=== PATIENT | female | born 1940 | race Caucasian/White ===

== ENCOUNTER → 2018-11-29 09:00 | Outpatient (CLI) | payer MEDICARE, SELFPAY ==
[2018-11-29 10:00] LABS: Bilirubin Urine UA NEGATIVE (NEGATIVE); Color Urine UA YELLOW; Glucose Urine UA NEGATIVE (Negative); Ketones Urine UA NEGATIVE (NEGATIVE); Leukocyte Esterase Urine UA 3+ (NEGATIVE); Nitrite Urine UA POSITIVE (Negative); Occult Blood Urine UA TRACE-INTACT (Negative); Protein Urine UA NEGATIVE (Negative); Urobilinogen Urine UA 0.2 E.U./dL (0.2)
[2018-11-29 10:05] LABS: Appearance Urine UA Cloudy
[2018-11-29 10:06] LABS: Add Manual Diff / Slide Review NO; Basophils Absolute Auto 100 /uL (0-100); Basophils Percent Auto 0.9 % (0-2); Eosinophils Absolute Auto 0 /uL (0-450); Eosinophils Percent Auto 0.5 % (2-4); Hematocrit 40.8 % (36-46); Hemoglobin 13.8 g/dL (12.0-16.0); Lymphocytes Absolute Auto 1300 /uL (1100-4500); Lymphocytes Percent Auto 15.5 % (25-40); Mean Corpuscular HGB Conc 33.8 % (30-36); Mean Corpuscular Hemoglobin 30.7 PG (26-34); Mean Corpuscular Volume 90.8 fL (80-100); Monocytes Absolute Auto 900 /uL (0-900); Monocytes Percent Auto 11.6 % (3-14); Neutrophils Absolute Auto 5800 /uL (1500-7000); Neutrophils Percent Auto 71.5 % (50-75); Platelet Count 421 X10^3/uL (150-400); Red Cell Distribution Width 13.3 % (11.6-14.8); White Blood Cell Count 8.1 X10^3/uL (4.5-11.0)
[2018-11-29 10:07] LABS: Bacteria Urine Many (>30); Culture Indicated Urine Specimen Cultured; RBC Urine 0-1/HPF (0-5/HPF); Squamous Epithelial Cell Urine 1-5 /HPF (0-5/HPF); WBC Urine 30-100/HPF (0-5/HPF)
[2018-11-29 10:44] LABS: Alanine Aminotransferase 29 IU/L (9-52); Albumin 4.1 g/dL (3.5-5.0); Albumin Globulin Ratio 1.5 (1.0-2.8); Alkaline Phosphatase 85 U/L (38-126); Aspartate Aminotransferase 22 IU/L (14-36); BUN Creatinine Ratio 17.1 (6-22); Bilirubin Total 0.7 mg/dL (0.2-1.3); Blood Urea Nitrogen 12 mg/dL (7-17); Calcium 9.2 mg/dL (8.4-10.2); Carbon Dioxide 28 mmol/L (22-32); Chloride 97 mmol/L (98-107); Cholesterol 129 mg/dL (140-199); Estimated Glomerular Filt Rate > 60.0 mL/min (>60); Globulin 2.8 g/dL (1.7-4.1); Glucose 97 mg/dL (80-110); HDL Cholesterol 57 mg/dL (40-60); HEMOLYSIS < 15 (0-50); LDL Cholesterol Calculated 61 mg/dL (<100); Potassium 4.9 mmol/L (3.4-5.1); Sodium 136 mmol/L (137-145); Total Protein 6.9 g/dL (6.3-8.2); Triglycerides 55 mg/dL (35-150)
[2018-11-29 11:13] LABS: Thyroid Stimulating Hormone 1.35 uIU/mL (0.47-4.68)
== END ==
PROVIDERS: Visit Provider Internal Medicine
DX: F32.9 Major depressive disorder, single episode, unspecified (principal); N39.0 Urinary tract infection, site not specified; Z00.00 Encounter for general adult medical examination without abnormal findings
CPT/HCPCS: 36415; 80053; 80061; 81001; 84443; 85025; 87077; 87086; 87186

== ENCOUNTER → 2020-02-26 13:10 | Outpatient (CLI) | payer MEDICARE, SELFPAY ==
--- NOTE | 2020-02-26 | DI.RAD.S_ITS ---
PROCEDURE: XR DEXA AXIAL SKELETON INDICATIONS: Other specified disorders of bone density and structure, mul COMPARISON: None. FINDINGS: This blank DEXA report has been sent in error by the PACS system. The correct and complete report will be forthcoming in 1-2 days. Thank you for your patience and understanding. Dictated by: Kody Jackson M.D. on 02/29/2020 at 8:11 Approved by: Kody Jackson M.D. on 02/29/2020 at 8:11
== END ==
PROVIDERS: PCP Internal Medicine; Referring Provider Physician Assistant; Visit Provider Physician Assistant
DX: M81.0 Age-related osteoporosis without current pathological fracture (principal); Z78.0 Asymptomatic menopausal state
CPT/HCPCS: 77080

== ENCOUNTER → 2020-03-19 08:43 | Outpatient (CLI) | payer MEDICARE, SELFPAY ==
--- NOTE | 2020-03-19 09:00 | DI.MG.S_ITS ---
Patient Name: JOESY RYDER date: 1940 Sex: F Attending Physician: Aguilar Indications: Date: 03/19/2020 08:50 At the request of: BIN FELICIANO Procedure: MM screening mammo BI BILATERAL DIGITAL SCREENING MAMMOGRAM 3D/2D WITH CAD: 03/19/2020 CLINICAL: Routine screening. Comparison is made to exams dated: 12/06/2017 mammogram, 09/10/2016 mammogram, and 12/09/2013 mammogram - [facility]. The tissue of both breasts is predominantly fatty. Current study was also evaluated with a Computer Aided Detection (CAD) system. There is a focal asymmetry in the left breast central to the nipple middle depth. No other significant masses, calcifications, or other findings are seen in either breast. IMPRESSION: INCOMPLETE: NEEDS ADDITIONAL IMAGING EVALUATION The focal asymmetry in the left breast is indeterminate. Additional views with possible ultrasound are recommended. This exam was interpreted at Station ID: [id number]. NOTE: For mammograms, a report in lay terms will be sent to the patient. Approximately 15% of breast malignancies will not be visualized mammographically. In the management of a palpable breast mass, a negative mammogram must not discourage biopsy of a clinically suspicious lesion. Electronically Signed By: Melina perales/tamera:03/22/2020 08:34:40 letter sent: Additional Imaging Needed ACR BI-RADS Category 0: Incomplete 3340F
== END ==
PROVIDERS: PCP Internal Medicine; Referring Provider Internal Medicine; Visit Provider Internal Medicine
DX: Z12.31 Encounter for screening mammogram for malignant neoplasm of breast (principal)
CPT/HCPCS: 77063; 77067

== ENCOUNTER → 2020-04-18 14:07 | Outpatient (CLI) | payer MEDICARE, SELFPAY ==
--- NOTE | 2020-04-18 | DI.MG.S_ITS ---
UNILATERAL LEFT DIGITAL DIAGNOSTIC MAMMOGRAM 3D/2D WITH ADDITIONAL VIEWS: 04/18/2020 CLINICAL: Additional evaluation requested from prior study. Comparison is made to exams dated: 03/19/2020 mammogram - [facility], 12/06/2017 mammogram, and 09/10/2016 mammogram - [facility]. The tissue of left breast is predominantly fatty. There is a round focal asymmetry in the left breast central to the nipple middle depth. This is seen in additional views. No other significant masses or calcifications are seen in the breast. IMPRESSION: INCOMPLETE: NEEDS ADDITIONAL IMAGING EVALUATION The focal asymmetry in the left breast is indeterminate. A targeted ultrasound of the left breast is recommended and will be performed immediately following this exam. This exam was interpreted at Station ID: [id number]. NOTE: For mammograms, a report in lay terms will be sent to the patient. Approximately 15% of breast malignancies will not be visualized mammographically. In the management of a palpable breast mass, a negative mammogram must not discourage biopsy of a clinically suspicious lesion. Electronically Signed By: Melina Mccracken M.D. lk/:04/18/2020 14:36:10 ACR BI-RADS Category 0: Incomplete 3340F
--- NOTE | 2020-04-18 | DI.US.S_ITS ---
ULTRASOUND OF LEFT BREAST: 04/18/2020 CLINICAL: Patient returns today to evaluate a focal asymmetry in the left breast. Comparison is made to exams dated: 04/18/2020 mammogram, 03/19/2020 mammogram - [facility], 12/06/2017 mammogram, and 09/10/2016 mammogram - [facility]. Color flow ultrasound of the left breast was performed on the areas of interest. Arizmendi scale images of the real-time examination were reviewed. There is a 0.7 cm x 0.3 cm x 0.7 cm oval cyst in the left breast at 12 o'clock middle depth. This oval cyst displays internal echoes and posterior acoustic enhancement. IMPRESSION: PROBABLY BENIGN The 0.7 cm x 0.3 cm x 0.7 cm oval cyst in the left breast is consistent with a complicated cyst and is probably benign. A follow-up ultrasound in 6 months is recommended to demonstrate stability. This exam was interpreted at Station ID: [id number]. Electronically Signed By: Melina perales/:04/18/2020 15:14:20 letter sent: Followup Recommended Ultrasound BI-RADS: 3 Probably benign
== END ==
PROVIDERS: PCP Internal Medicine; Referring Provider Internal Medicine; Visit Provider Internal Medicine
DX: R92.8 Other abnormal and inconclusive findings on diagnostic imaging of breast (principal); N60.02 Solitary cyst of left breast
CPT/HCPCS: 76642; 77065; G0279

== ENCOUNTER → 2020-04-29 14:59 | Outpatient (ROUT) | payer MEDICARE, SELFPAY ==
[2020-04-29 15:31] LABS: Add Manual Diff / Slide Review NO; Basophils Absolute Auto 100 /uL (0-100); Basophils Percent Auto 1.1 % (0-2); Eosinophils Absolute Auto 100 /uL (0-450); Eosinophils Percent Auto 1.6 % (2-4); Hematocrit 44.1 % (36-46); Hemoglobin 14.7 g/dL (12.0-16.0); Lymphocytes Absolute Auto 1900 /uL (1100-4500); Lymphocytes Percent Auto 27.7 % (25-40); Mean Corpuscular HGB Conc 33.4 % (30-36); Mean Corpuscular Hemoglobin 31.6 PG (26-34); Mean Corpuscular Volume 94.5 fL (80-100); Monocytes Absolute Auto 1000 /uL (0-900); Monocytes Percent Auto 14.4 % (3-14); Neutrophils Absolute Auto 3900 /uL (1500-7000); Neutrophils Percent Auto 55.2 % (50-75); Platelet Count 275 X10^3/uL (150-400); Red Blood Cell Count 4.67 X10^6/uL (4.0-5.2); Red Cell Distribution Width 13.5 % (11.6-14.8)
[2020-04-29 15:32] LABS: Alanine Aminotransferase 25 IU/L (<35); Albumin 4.4 g/dL (3.5-5.0); Albumin Globulin Ratio 1.6 (1.0-2.8); Alkaline Phosphatase 72 U/L (38-126); Aspartate Aminotransferase 28 IU/L (14-36); BUN Creatinine Ratio 15.3 (6-22); Bilirubin Total 0.6 mg/dL (0.2-1.3); Blood Urea Nitrogen 11 mg/dL (7-17); Calcium 9.6 mg/dL (8.4-10.2); Carbon Dioxide 34 mmol/L (22-32); Chloride 97 mmol/L (98-107); Estimated Glomerular Filt Rate > 60.0 mL/min (>60); Globulin 2.7 g/dL (1.7-4.1); Glucose 72 mg/dL (80-110); HEMOLYSIS < 15 (0-50); Potassium 4.4 mmol/L (3.4-5.1); Sodium 137 mmol/L (137-145); Total Protein 7.1 g/dL (6.3-8.2)
[2020-04-29 16:02] LABS: TSH w/ Reflex to FT4 2.04 uIU/mL (0.47-4.68)
[2020-04-29 16:29] LABS: Vitamin D 25 Hydroxy (D3) 70.2 ng/mL (30.0-100.0)
== END ==
PROVIDERS: PCP Internal Medicine; Visit Provider Internal Medicine
DX: M81.0 Age-related osteoporosis without current pathological fracture (principal); Z86.39 Personal history of other endocrine, nutritional and metabolic disease; K90.0 Celiac disease; R00.1 Bradycardia, unspecified
CPT/HCPCS: 80053; 82306; 84443; 85025

== ENCOUNTER → 2020-09-27 16:54 | Outpatient (CLI) | payer MEDICARE, SELFPAY ==
--- NOTE | 2020-09-27 16:57 | DI.RAD.S_ITS ---
PROCEDURE: XR SHOULDER RT MIN 2V INDICATIONS: pain TECHNIQUE: 3 views of the shoulder were acquired. COMPARISON: None. FINDINGS: Bones: No fracture. Moderate right shoulder joint degeneration with anatomic alignment. Scattered degenerative subchondral sclerosis and spurring. Soft tissues: No suspicious soft tissue calcifications. IMPRESSION: Moderate right shoulder joint degeneration. If the patient's pain or other symptoms persist, consider further evaluation with MRI Dictated by: Dylan Patiño M.D. on 09/28/2020 at 9:52 Approved by: Dylan Patiño M.D. on 09/28/2020 at 10:01
== END ==
PROVIDERS: PCP Family Medicine; Referring Provider Family Medicine; Visit Provider Family Medicine
DX: M25.511 Pain in right shoulder (principal); M19.011 Primary osteoarthritis, right shoulder
CPT/HCPCS: 73030

== ENCOUNTER → 2020-10-04 14:47 | Outpatient (CLI) | payer MEDICARE, SELFPAY ==
--- NOTE | 2020-10-04 14:48 | DI.US.S_ITS ---
LIMITED ULTRASOUND OF LEFT BREAST: 10/04/2020 CLINICAL: 6 month follow-up of cysts. Comparison is made to exams dated: 04/18/2020 ultrasound, 03/19/2020 mammogram, and 04/18/2020 mammogram - [facility]. Color flow and real-time ultrasound of the left breast were performed. Arizmendi scale images of the real-time examination were reviewed. There is a 0.9 cm x 0.9 cm x 0.5 cm oval cyst in the left breast at 12 o'clock middle depth 1 cm from the nipple. This oval cyst displays internal echoes. This abnormality is increased in size. Color flow imaging demonstrates that there is no vascularity present. IMPRESSION: PROBABLY BENIGN The 0.9 cm oval cyst in the left breast is consistent with a complicated cyst and is probably benign. A follow-up ultrasound in 6 months is recommended to demonstrate stability. Patient will also be due for bilateral mammogram at that time. Exam findings were conveyed to the patient. This exam was interpreted at Station ID: [id number]. Electronically Signed By: Dada Cruz M.D. [facility] [place]/:10/04/2020 16:57:10 letter sent: Followup Recommended Ultrasound BI-RADS: 3 Probably benign
== END ==
PROVIDERS: PCP Family Medicine; Referring Provider Family Medicine; Visit Provider Family Medicine
DX: R92.8 Other abnormal and inconclusive findings on diagnostic imaging of breast (principal); N60.02 Solitary cyst of left breast; M25.511 Pain in right shoulder
CPT/HCPCS: 76642

== ENCOUNTER → 2020-11-10 07:41 | Outpatient (CLI) | payer MEDICARE, SELFPAY ==
[2020-11-10 08:53] LABS: Add Manual Diff / Slide Review NO; Basophils Absolute Auto 100 /uL (0-100); Basophils Percent Auto 1.3 % (0-2); Eosinophils Absolute Auto 100 /uL (0-450); Eosinophils Percent Auto 1.8 % (2-4); Hematocrit 43.4 % (36-46); Hemoglobin 14.6 g/dL (12.0-16.0); Lymphocytes Absolute Auto 1600 /uL (1100-4500); Lymphocytes Percent Auto 28.3 % (25-40); Mean Corpuscular HGB Conc 33.7 % (30-36); Mean Corpuscular Hemoglobin 31.4 PG (26-34); Mean Corpuscular Volume 93.1 fL (80-100); Monocytes Absolute Auto 700 /uL (0-900); Monocytes Percent Auto 12.1 % (3-14); Neutrophils Absolute Auto 3100 /uL (1500-7000); Neutrophils Percent Auto 56.5 % (50-75); Platelet Count 261 X10^3/uL (150-400); Red Blood Cell Count 4.66 X10^6/uL (4.0-5.2); Red Cell Distribution Width 13.6 % (11.6-14.8); White Blood Cell Count 5.6 X10^3/uL (4.5-11.0)
[2020-11-10 09:08] LABS: BUN Creatinine Ratio 19.2 (6-22); Blood Urea Nitrogen 15 mg/dL (7-17); Calcium 9.5 mg/dL (8.4-10.2); Carbon Dioxide 29 mmol/L (22-32); Chloride 99 mmol/L (98-107); Cholesterol 163 mg/dL (140-199); Estimated Glomerular Filt Rate > 60.0 mL/min (>60); Glucose 80 mg/dL (80-110); HDL Cholesterol 68 mg/dL (40-60); HEMOLYSIS < 15 (0-50); LDL Cholesterol Calculated 83 mg/dL (<100); Potassium 5.1 mmol/L (3.4-5.1); Sodium 135 mmol/L (137-145); Triglycerides 58 mg/dL (35-150)
== END ==
PROVIDERS: PCP Family Medicine; Referring Provider Internal Medicine Cardiovascular Disease; Visit Provider Internal Medicine Cardiovascular Disease
DX: Z00.00 Encounter for general adult medical examination without abnormal findings (principal)
CPT/HCPCS: 36415; 80048; 80061; 85025

== ENCOUNTER → 2020-11-25 12:48 | Outpatient (CLI) | payer MEDICARE, SELFPAY ==
--- NOTE | 2020-11-25 12:52 | DI.RAD.S_ITS ---
PROCEDURE: XR KNEE RT 3V INDICATIONS: instability TECHNIQUE: 3 views of the knee were acquired. COMPARISON: None. FINDINGS: Bones: No fractures or dislocations. No suspicious bony lesions. There is [id number] medial compartment joint space narrowing on the frontal projection and only mild narrowing at the lateral compartment. Soft tissues: No joint effusion. No suspicious soft tissue calcifications. 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 Dictated by: Kody Jackson M.D. on 11/25/2020 at 15:40 Approved by: Kody Jackson M.D. on 11/25/2020 at 15:40
== END ==
PROVIDERS: PCP Family Medicine; Referring Provider Family Medicine; Visit Provider Family Medicine
DX: M23.51 Chronic instability of knee, right knee (principal)
CPT/HCPCS: 73562

== ENCOUNTER → 2020-12-07 08:22 | Outpatient (CLI) | payer MEDICARE, SELFPAY ==
[2020-12-07 11:40] LABS: COVID19 -Nasal RAPID Negative (Negative)
== END ==
PROVIDERS: PCP Family Medicine; Visit Provider Physician Assistant
DX: Z01.812 Encounter for preprocedural laboratory examination (principal); Z20.822 Contact with and (suspected) exposure to COVID-19
CPT/HCPCS: 87635; C9803

== ENCOUNTER → 2020-12-09 13:35 | Outpatient (CLI) | payer MEDICARE, SELFPAY ==
--- NOTE | 2020-12-09 | DI.ECHO.S_ITS ---
[facility]---------+ [facility] +---------+ : : [address] : [address] : : : : [id number] : : : : Phone: [phone]+ Echocardiogram Report + + :Name: JOSEY RYDER Study Date: 12/09/2020 Height: 64 in : :[facility] ReadingLocation: Weight: 135 lb : : Gender: Female BSA: 1.7 m2 : :: 1940 Age: 80 yrs BP: 178/77 mmHg: :Reason For Study: Bradycardia : :Ordering Physician: Viktor : :Cesar Hurt Performed By: Dennis Clifton : :Referring: VIKTOR HURT : + + Interpretation Summary 1) Normal left ventricular thickness, size, wall motion, and systolic function (EF 60-65%). 2) Normal right ventricular size and function. 3) No significant valvular abnormalities. 4) No prior Echo available for comparison. Procedure: A two-dimensional transthoracic echocardiogram with color flow and Doppler was performed. The study quality was technically adequate. There is no prior echocardiogram noted for this patient. The patient was in sinus bradycardia with heart rates between 43-52 bpm during the exam. Left Ventricle: The left ventricle is normal in size and wall thickness. Left ventricular systolic function is normal. The ejection fraction is estimated to be 60-65%. There are no focal wall motion abnormalities. Diastolic function could not be accurately assessed due to unobtainable data. Right Ventricle: The right ventricle is normal in size and function. Atria: The left atrium is moderately dilated. Right atrial size is normal. There is no Doppler evidence for an interatrial shunt. Mitral Valve: There is mild mitral annular calcification. There is trace mitral regurgitation. Aortic Valve: The aortic valve is normal in structure and function. There is no aortic valve stenosis. No aortic regurgitation is present. Tricuspid Valve: The tricuspid valve is normal in structure and function. No tricuspid regurgitation. Pulmonary artery pressures cannot be estimated because of the lack of a measurable TR jet velocity but the IVC suggests a CVP of around 3 mmHg. Pulmonic Valve: The pulmonic valve is not well visualized. There is no pulmonic valvular regurgitation. Great Vessels: The aortic root is normal size. The dimensions of the ascending aorta are normal. The IVC is of normal diameter and collapses greater than 50% with a sniff. This suggests a low right atrial pressure of 3 mm Hg. Pericardium/ Pleura There is no pericardial effusion. There is no pleural effusion. MMode/2D Measurements & Calculations LVIDd: 4.3 cm LVOT diam: 1.9 cm LVIDs: 2.8 cm Ao root diam: 2.6 cm FS: 33.5 % asc Aorta Diam: 3.0 cm IVSd: 0.79 cm LVPWd: 0.79 cm LV garza. diameter/BSA (cm/m^2): 2.6 LV sys. diameter/BSA (cm/m^2): 1.7 LA A2 area: 19.4 cm2 RA long axis: 4.9 cm LA A4 area: 19.7 cm2 RA area: 12.4 cm2 LA length (vol): 5.0 cm RA vol: 26.7 ml LA vol: 65.0 ml RA : 16.2 ml/m2 LA vol index: 39.2 ml/m2 IVC diam: 2.0 cm TAPSE: 2.6 cm Doppler Measurements & Calculations Ao V2 max: 127.2 cm/sec LVOT Max Abel: 142.4 cm/sec Ao V2 mean: 85.8 cm/sec LV V1 max P.1 mmHg Ao max P.5 mmHg LV V1 VTI: 32.5 cm Ao mean P.3 mmHg EUSEBIO(I,D): 3.0 cm2 Ao V2 VTI: 31.6 cm EUSEBIO(V,D): 3.3 cm2 sev ratio: 1.0 EUSEBIO indexed to BSA (cm^2/m^2): 1.8 MV E max abel: 81.4 cm/sec PA pr(Accel): 57.2 mmHg MV A max abel: 76.9 cm/sec MV E/A: 1.1 Med Peak E' Abel: 5.5 cm/sec E/E' med: 14.7 Lat Peak E' Abel: 8.4 cm/sec E/E' lat: 9.7 E/e' average: 12.2 MV dec time: 0.21 sec SV(LVOT): 95.1 ml Reading Physician:05:06 PM
--- NOTE | 2020-12-09 15:51 | PM.TREADMILL ---
Cardiac Stress Test Report Referral & Results Date Patient Seen: 12/09/20 Time Patient Seen: 15:51 Requesting provider: Ayaka Hurt Indication: bradycardia Rest ECG: Sinus bradycardia Procedure Note: Standard Missael protocol, 7:03, 7.2 METS Excellent exercise capacity, ANDREW -51% Normal hemodynamic response to exercise No chest pain or anginal symptoms No significant ST changes at peak exercise No evidence of chronotropic incompetence Impression: Normal exercise stress test Please note: Actual ECG tracings can be found in the PACS system.
--- NOTE | 2020-12-10 00:10 | DI.NM.S_ITS ---
DATE OF SERVICE: 12/09/2020 PROCEDURE: Exercise stress test. INDICATION: Sinus bradycardia. CARDIAC STRESS: Under the supervision of an attending staff, the patient underwent exercise stress test, as per standard protocol. She walked on Missael protocol for 7 minutes 03 seconds, achieved a maximum heart rate of 118, which was 85 percent of target heart rate. Baseline heart rate was 52 with sinus bradycardia. Baseline blood pressure 150/70 mmHg. Peak blood pressure 162/88 mmHg. The patient achieved 10.1 METs of workload and functional aerobic impairment -51 percent. Baseline rhythm was sinus with sinus bradycardia with repolarization changes. During stress, there were some nonspecific ST changes, as well as some PVCs, PACs and occasional ventricular couplets without any obvious atrial fibrillation or ventricular tachycardia. No chest pain or anginal symptoms. The patient felt fatigue. CONCLUSION: Exercise stress test is negative for obvious inducible ischemic changes. Preserved chronotropic response. Normal hemodynamic response. No anginal symptoms. During stress, patient has some PVCs (premature ventricular contractions) and PACs (premature atrial contractions) with occasional ventricular couplets without any obvious atrial fibrillation or ventricular tachycardia. Onelia Stratton - SHAY/dung/lc doc#: [id number]/job#: [id number] dd: 12/09/2020 17:34:00 dt: 12/09/2020 19:29:00 DICTATING /COPIES TO: Danika Velasquez MD COPIES MNE: JABARI;
== END ==
PROVIDERS: PCP Family Medicine; Referring Provider Internal Medicine Cardiovascular Disease; Visit Provider Internal Medicine Cardiovascular Disease
DX: R00.1 Bradycardia, unspecified (principal)
CPT/HCPCS: 93017; 93306

== ENCOUNTER 2021-01-28 16:37 | Emergency (ER) | payer MEDICARE, SELFPAY ==
[2021-01-28 16:43] VITALS: BP 186/69; PULSE 63; RESP 18; TEMP 36.4; O2SAT 97; BMI 23.1
--- NOTE | 2021-01-28 17:32 | ED.GENADULT ---
HPI - General Adult General Chief complaint: Extremity Injury, Upper Stated complaint: LT HAND GASH, USING CLIPPERS Time Seen by Provider: 01/28/21 17:20 Source: patient Mode of arrival: Ambulatory Limitations: no limitations History of Present Illness HPI narrative: Patient is here for evaluation of a cut to her left hand. It did occur earlier today when she was using clippers to cut some bushes. She is up-to-date on her tetanus. She did not wash it out prior to arrival. She did cover the bandage for Related Data Home Medications Medication Instructions Recorded Confirmed No Known Home Medications 10/04/20 01/19/21 Allergies Allergy/AdvReac Type Severity Reaction Status Date / Time gluten Allergy Unknown Verified 01/19/21 15:59 Review of Systems Musculoskeletal Comments: Discomfort over the cut of her left hand Integumentary/Breasts Comments: To left hand Neurologic Comments: No neurologic changes Hematologic/Lymphatic On Anticoagulants: No Patient History Medical History Abnormality of breast on screening mammography Anemia (~1966) Cataracts, bilateral Celiac disease (~2008) Cervical somatic dysfunction Chicken pox Chronic instability of right knee Chronic pain in right shoulder Cranial somatic dysfunction Foot fracture, right (~1994) Frequent UTI (~2012) Gluten enteropathy Hearing loss History of recurrent ear infection Insomnia Measles Mumps Osteoarthritis (~2020) Osteopenia Ruptured tympanic membrane Skin cancer (~2016) Stress incontinence Upper extremity somatic dysfunction Wears glasses Surgical History (Updated 09/26/20 @ 21:25 by Caterina Farmer) Anesthesia History of bladder suspension procedure (~2007) History of hip replacement (~2010) History of hip replacement (~2012) History of left knee replacement (~2014) Prolapsed uterus (~2008) Family History (Updated 09/26/20 @ 21:28 by Caterina Farmer) Father Cancer Mother History of emphysema COPD (chronic obstructive pulmonary disease) Brother History of knee surgery Melanoma Neuropathy of foot Grandmother History of heart disease Social History Smoking Status: Never smoker Smoking Status: Never smoker alcohol intake frequency: 0-2 drinks per day Substance Use Type: does not use Exam Initial Vital Signs Initial Vital Signs: Vital Signs Temperature 97.5 F L 01/28/21 16:43 Pulse Rate 63 01/28/21 16:43 Respiratory Rate 18 01/28/21 16:43 Blood Pressure 186/69 H 01/28/21 16:43 Pulse Oximetry 97 01/28/21 16:43 Const General: cooperative and healthy appearing NICOLLEFL Head: normal to inspection and normocephalic Cardio Pulses: radial pulses present on the left Skin Other: 1 cm laceration to left hand Neuro General: patient alert, patient awake, patient oriented x3 and moves all extremities Sensory Exam: no sensory deficits noted Extrem Other: Left wrist is unremarkable Psych Appearance: grossly normal and well kempt Procedures Laceration Repair Laceration 1: Site: hand Side (If applicable): left Size (cm): 1 Description: linear Depth: simple, single layer Local Anesthetic: lidocaine 1% and with bicarb Amount of anesthesia used (mL): 5 Pre-repair: wound explored Skin layer closed with: nylon Size (cm): 5-0 Number of sutures: 3 Technique: simple, interrupted Course Orders Ordered: Discontinued Medications Bacitracin (Bacitracin Oint 0.9 Gm Pckt) 1 applic TOP NOW ONE Stop: 01/28/21 18:24 Last Admin: 01/28/21 18:28 Dose: 1 applic Documented by: CTRYOUNG Lidocaine/Sodium Bicarbonate (Lido 1%/Sod Bicarb 8.4% (10ml) 10 Ml Syringe) 10 ml INJ NOW ONE Stop: 01/28/21 17:32 Last Admin: 01/28/21 17:39 Dose: 10 ml Documented by: CTRYOUNG Vital Signs Vital signs: Vital Signs - 8 hr 01/28/21 16:43 01/28/21 18:33 Temperature 97.5 F L Pulse Rate 63 42 L Respiratory Rate 18 18 Blood Pressure 186/69 H 174/74 H Pulse Oximetry 97 97 Medical Decision Making [facility] Narrative Medical decision making narrative: Wound was irrigated. She is up-to-date on tetanus. It was closed as described above. She was given return precautions and follow-up instructions. She expressed understanding and agreement. Discharge Plan Departure Patient Disposition: Home Clinical Impression: Laceration Instructions: DI for Laceration Repair -- Simple Activity Restrictions/Additional Instructions: The stitches do need to be removed in 7-10 days. Until then you can keep it covered with a bandage in use topical antibiotic ointment. You can wash her hands like normal use soap and water like normal. Return to the emergency department for any new or worsening symptoms Prescriptions: No Action No Known Home Medications RF: 0 Referrals: Mauro Sandoval DO [Primary Care Provider] -
[2021-01-28] MEDS: LIDO 1%/SOD BICARB 8.4% (10ML) 10 ML SYRINGE INJ (17:39)
[2021-01-28] MEDS: BACITRACIN OINT 0.9 GM PCKT 1 APPLIC TOP (18:28)
[2021-01-28 18:33] VITALS: BP 174/74; PULSE 42; RESP 18; O2SAT 97
== END 2021-01-28 18:34 | disposition home or self-care (01) ==
PROVIDERS: Emergency Provider Emergency Medicine; PCP Family Medicine
DX: S61.412A Laceration without foreign body of left hand, initial encounter (principal); W27.2XXA Contact with scissors, initial encounter
CPT/HCPCS: 12001; 99283

== ENCOUNTER → 2021-05-01 09:03 | Outpatient (CLI) | payer MEDICARE, SELFPAY ==
--- NOTE | 2021-05-01 | DI.MG.S_ITS ---
BILATERAL DIGITAL DIAGNOSTIC MAMMOGRAM 3D/2D SHORT-TERM FOLLOW-UP: 05/01/2021 CLINICAL: Short term follow up of the left breast, due for bilateral imaging. Comparison is made to exams dated: 04/18/2020 mammogram, 03/19/2020 mammogram - [facility], 12/06/2017 mammogram - [facility], 10/04/2020 ultrasound - [facility], and 09/10/2016 mammogram - [facility]. The tissue of both breasts is predominantly fatty. There is a focal asymmetry in the left breast at 12 o'clock middle depth. This is less prominent. No other significant masses, calcifications, or other findings are seen in either breast. IMPRESSION: INCOMPLETE: NEEDS ADDITIONAL IMAGING EVALUATION The focal asymmetry in the left breast remains indeterminate. A targeted ultrasound is recommended and will immediately follow. This exam was interpreted at Station ID: [id number]. NOTE: For mammograms, a report in lay terms will be sent to the patient. Approximately 15% of breast malignancies will not be visualized mammographically. In the management of a palpable breast mass, a negative mammogram must not discourage biopsy of a clinically suspicious lesion. Electronically Signed By: Dada Cruz M.D. slc/:05/01/2021 09:42:09 ACR BI-RADS Category 0: Incomplete 3340F
--- NOTE | 2021-05-01 09:04 | DI.US.S_ITS ---
LIMITED ULTRASOUND OF LEFT BREAST: 05/01/2021 CLINICAL: Patient returns today to evaluate a focal asymmetry in the left breast. Comparison is made to exams dated: 05/01/2021 mammogram, 10/04/2020 ultrasound, 04/18/2020 ultrasound, 04/18/2020 mammogram, 03/19/2020 mammogram - [facility], and 12/06/2017 mammogram - [facility]. Color flow and real-time ultrasound of the left breast 12 o'clock region were performed. Arizmendi scale images of the real-time examination were reviewed. There is a 0.2 cm x 0.2 cm x 0.1 cm oval cyst in the left breast at 12 o'clock middle depth 1 cm from the nipple. This oval cyst displays internal echoes. This abnormality is decreased in size. Color flow imaging demonstrates that there is no vascularity present. IMPRESSION: PROBABLY BENIGN The 0.2 cm oval cyst in the left breast is consistent with a complicated cyst and is probably benign. This is favored to represent a significant decrease in size in the previously seen complicated cyst. The mammographic finding is less prominent. A follow-up mammogram and a possible ultrasound in 12 months is recommended. Patient will be due for right breast mammogram at that time. Exam findings were conveyed to the patient. This exam was interpreted at Station ID: [id number]. Electronically Signed By: Dada Cruz M.D. slc/:05/01/2021 10:42:33 letter sent: Followup Recommended Ultrasound BI-RADS: 3 Probably benign
== END ==
PROVIDERS: PCP Family Medicine; Referring Provider Family Medicine; Visit Provider Family Medicine
DX: R92.8 Other abnormal and inconclusive findings on diagnostic imaging of breast (principal); N60.02 Solitary cyst of left breast
CPT/HCPCS: 76642; 77066; G0279

== ENCOUNTER → 2022-04-03 14:19 | Outpatient (CLI) | payer MEDICARE, SELFPAY | PROVIDERS: PCP Family Medicine; Referring Provider Family Medicine; Visit Provider Family Medicine | DX: Z13.820 Encounter for screening for osteoporosis; Z78.0 Asymptomatic menopausal state; Z79.890 Hormone replacement therapy | CPT/HCPCS: 77080; 77081 ==

== ENCOUNTER → 2022-04-12 13:53 | Outpatient (CLI) | payer MEDICARE, SELFPAY ==
--- NOTE | 2022-04-12 | DI.ECHO.S_ITS ---
[facility] +---------+ Hospital +---------+ : : [address] : [address] : : : : [id number] : : : : Phone: [phone]+ Echocardiogram Report + + :Name: JOSEY RYDER Study Date: 04/12/2022 Height: 64 in : :[facility] ReadingLocation: Weight: 135 lb : : Gender: Female BSA: 1.7 m2 : :: 1940 Age: 81 yrs BP: 159/84 mmHg: :Reason For Study: Atrial fibrillation : :Ordering Physician: ROSE, : :VIKTOR Performed By: Dennis Clifton : :Referring: VIKTOR HURT : + + Interpretation Summary 1) Normal left ventricular thickness, size, wall motion, and systolic function (EF 60-65%). 2) Normal right ventricular size and function. 3) No significant valvular abnormalities. 4) Compared to the Echo done 12/09/2020, no significant change. Procedure: A two-dimensional transthoracic echocardiogram with color flow and Doppler was performed. The study quality was technically adequate. Comparison is made with the echocardiogram of 12/09/2020. Left Ventricle: The left ventricle is normal in size and wall thickness. Left ventricular systolic function is normal. The ejection fraction is estimated to be 60-65%. There are no focal wall motion abnormalities. Diastolic parameters suggest a pseudonormalization pattern, consistent with probable elevated filling pressures. Right Ventricle: The right ventricle is normal in size and function. Atria: The left atrium is moderately dilated. Right atrial size is normal. The interatrial septum grossly appears intact with no obvious evidence for an atrial septal defect. Mitral Valve: There is mild mitral annular calcification. There is mild mitral regurgitation. Aortic Valve: The aortic valve is normal in structure and function. There is trace aortic regurgitation. Tricuspid Valve: The tricuspid valve is normal in structure and function. There is a trace or physiologic amount of tricuspid regurgitation. Pulmonary artery pressures cannot be estimated because of the lack of a measurable TR jet velocity. Pulmonic Valve: The pulmonic valve is normal in structure and function. There is no pulmonic valvular regurgitation. Great Vessels: The aortic root is normal size. The dimensions of the ascending aorta are normal. The IVC is of normal diameter and collapses greater than 50% with a sniff. This suggests a low right atrial pressure of 3 mm Hg. Pericardium/ Pleura There is no pericardial effusion. There is no pleural effusion. MMode/2D Measurements & Calculations LVIDd: 4.3 cm LVOT diam: 2.0 cm LVIDs: 2.8 cm Ao root diam: 2.6 cm FS: 34.9 % IVSd: 0.90 cm LVPWd: 0.80 cm LV garza. diameter/BSA (cm/m^2): 2.6 LV sys. diameter/BSA (cm/m^2): 1.7 LA dimension: 3.5 cm RA long axis: 5.6 cm LA A2 area: 22.4 cm2 LA A4 area: 20.7 cm2 LA length (vol): 5.6 cm LA vol: 70.2 ml LA vol index: 42.4 ml/m2 TAPSE_phl: 2.9 cm Doppler Measurements & Calculations Ao V2 max: 123.0 cm/sec LVOT Max Abel: 132.0 cm/sec Ao V2 mean: 90.0 cm/sec LV V1 max P.0 mmHg Ao max P.0 mmHg LV V1 VTI: 33.9 cm Ao mean P.0 mmHg EUSEBIO(I,D): 3.6 cm2 Ao V2 VTI: 29.5 cm EUSEBIO(V,D): 3.4 cm2 sev ratio: 1.1 EUSEBIO indexed to BSA (cm^2/m^2): 2.2 MV E max abel: 104.0 cm/sec SV(LVOT): 106.5 ml MV A max abel: 94.1 cm/sec MV E/A: 1.1 Med Peak E' Abel: 5.6 cm/sec E/E' med: 18.5 Lat Peak E' Abel: 8.3 cm/sec E/E' lat: 12.5 E/e' average: 15.5 MV dec time: 0.18 sec AV VR_phl: 1.1 MV P1/2t-pr_phl: 53.0 msec EUSEBIO(VTI)/BSA_phl: 2.2 Reading Physician:08:11 PM
== END ==
PROVIDERS: PCP Family Medicine; Referring Provider Internal Medicine Cardiovascular Disease; Visit Provider Internal Medicine Cardiovascular Disease
DX: I45.5 Other specified heart block (principal); I48.0 Paroxysmal atrial fibrillation; I34.0 Nonrheumatic mitral (valve) insufficiency
CPT/HCPCS: 93306

== ENCOUNTER → 2022-05-16 13:51 | Outpatient (CLI) | payer MEDICARE, SELFPAY ==
[2022-05-16 14:32] LABS: Appearance Urine UA SL CLOUDY; Bilirubin Urine UA NEGATIVE (NEGATIVE); Color Urine UA YELLOW; Glucose Urine UA NEGATIVE (Negative); Ketones Urine UA NEGATIVE (NEGATIVE); Leukocyte Esterase Urine UA 3+ (NEGATIVE); Nitrite Urine UA NEGATIVE (Negative); Occult Blood Urine UA TRACE-INTACT (Negative); Protein Urine UA NEGATIVE (Negative); Specific Gravity Urine UA <=1.005 (1.000-1.035); Urobilinogen Urine UA 0.2 E.U./dL (0.2)
[2022-05-16 14:45] LABS: Bacteria Urine Many (>30); Culture Indicated Urine Specimen Cultured; RBC Urine 1-5/HPF (0-5/HPF); WBC Urine >100/HPF (0-5/HPF)
== END ==
PROVIDERS: PCP Family Medicine; Referring Provider Family Medicine; Visit Provider Family Medicine
DX: R39.9 Unspecified symptoms and signs involving the genitourinary system (principal)
CPT/HCPCS: 81001; 87077; 87086; 87186

== ENCOUNTER → 2022-06-05 10:15 | Outpatient (CLI) | payer MEDICARE, SELFPAY ==
--- NOTE | 2022-06-05 | DI.MG.S_ITS ---
BILATERAL DIGITAL DIAGNOSTIC MAMMOGRAM 3D/2D SHORT-TERM FOLLOW-UP: 06/05/2022 CLINICAL: One year follow of the left breast. Comparison is made to exams dated: 05/01/2021 mammogram, 04/18/2020 mammogram, and 03/19/2020 mammogram - [facility]. Both breasts are almost entirely fatty (category a/<25% glandular tissue). The focal asymmetry in the left breast at 12 o'clock middle depth has become less prominent, not seen on supplementary views. No other significant masses, calcifications, or other findings are seen in either breast. IMPRESSION: INCOMPLETE: NEEDS ADDITIONAL IMAGING EVALUATION The focal asymmetry in the left breast is less prominent. An ultrasound is recommended to document continued stability and for characterization This was performed immediately following this exam. Mammograms are otherwise stable. Based on the Tyrer Cuzick model (a risk assessment model) the patient's lifetime risk is 0.6% and her 10 year risk is 0.0%. According to the ACR, ACS, and NCCN guidelines, an annual breast MRI exam along with mammogram is recommended if the patient's lifetime risk is 20% or greater. This exam was interpreted at Station ID: [id number]. NOTE: For mammograms, a report in lay terms will be sent to the patient. Approximately 15% of breast malignancies will not be visualized mammographically. In the management of a palpable breast mass, a negative mammogram must not discourage biopsy of a clinically suspicious lesion. Electronically Signed By: Diane bland/:06/05/2022 11:13:10 ACR BI-RADS Category 0: Incomplete 3340F
--- NOTE | 2022-06-05 10:17 | DI.US.S_ITS ---
LIMITED ULTRASOUND OF LEFT BREAST: 06/05/2022 CLINICAL: 6 month follow-up of cysts. Comparison is made to exams dated: 06/05/2022 mammogram, 05/01/2021 ultrasound, 05/01/2021 mammogram, 10/04/2020 ultrasound, 04/18/2020 ultrasound, and 04/18/2020 mammogram - [facility]. Color flow ultrasound of the left breast 12 o'clock region was performed. Arizmendi scale images of the real-time examination were reviewed. There is a 0.2 cm x 0.2 cm x 0.3 cm oval cyst in the left breast at 12 o'clock anterior depth 1 cm from the nipple. This oval cyst is anechoic. This abnormality is less prominent. No vascularity. IMPRESSION: BENIGN There is no sonographic evidence of malignancy. The 0.2 cm x 0.2 cm x 0.3 cm oval cyst in the left breast is consistent with a simple cyst and is benign. Return to annual mammogram screening schedule is recommended. Findings and recommendations were conveyed to the patient at time of exam. This exam was interpreted at Station ID: [id number]. Electronically Signed By: Diane bland/:06/05/2022 11:14:48 letter sent: Normal Exam Ultrasound BI-RADS: 2 Benign
== END ==
PROVIDERS: PCP Family Medicine; Referring Provider Family Medicine; Visit Provider Family Medicine
DX: R92.8 Other abnormal and inconclusive findings on diagnostic imaging of breast (principal); N60.02 Solitary cyst of left breast
CPT/HCPCS: 76642; 77066; G0279

== ENCOUNTER → 2022-06-08 13:12 | Outpatient (CLI) | payer MEDICARE, SELFPAY ==
--- NOTE | 2022-06-08 13:15 | DI.RAD.S_ITS ---
PROCEDURE: XR WRIST LT MIN 3V INDICATIONS: Left hand pain and swelling status post fall TECHNIQUE: 3 views of the wrist were acquired. COMPARISON: None. FINDINGS: Bones: There is generalized osteopenia. Mild deformity of the distal radius is most likely secondary to a remote prior injury. There is resulting positive ulnar variance and mild radial tilting. Mild irregularity of the ulnar styloid tip is also most likely chronic. No acute fracture identified. Degenerative changes are seen at the 1st carpometacarpal joint and triscaphe joint. Scaphoid view: Intact scaphoid. Soft tissues: No suspicious soft tissue calcifications. IMPRESSION: 1. No acute osseous abnormality. If clinical suspicion and/or symptoms persist, additional imaging with repeat plain films, or advanced imaging (e.g. CT, MRI) may be helpful for further assessment. 2. Mild chronic fracture deformity at the distal radius and possibly the ulnar styloid. 3. Degenerative changes at the 1st carpometacarpal and triscaphe joint. Approved by: Shai Zafar M.D. on 06/08/2022 at 14:19
--- NOTE | 2022-06-08 13:15 | DI.RAD.S_ITS ---
PROCEDURE: XR HAND LT MIN 3V INDICATIONS: Left hand pain and swelling status post fall TECHNIQUE: 3 views of the hand acquired. COMPARISON: None. FINDINGS: Bones: Generalized osteopenia. Mild chronic fracture deformity of the distal radius and likely the ulnar styloid. Degenerative changes are seen at the 1st carpometacarpal joint and triscaphe joint as well as throughout the interphalangeal joints of the fingers. Soft tissues: No suspicious soft tissue calcifications. IMPRESSION: 1. No acute osseous abnormality. If clinical suspicion and/or symptoms persist, additional imaging with repeat plain films, or advanced imaging (e.g. CT, MRI) may be helpful for further assessment. 2. Background degenerative changes. Approved by: Shai Zafar M.D. on 06/08/2022 at 14:20
== END ==
PROVIDERS: PCP Family Medicine; Referring Provider Family Medicine; Visit Provider Family Medicine
DX: M85.842 Other specified disorders of bone density and structure, left hand (principal); M21.832 Other specified acquired deformities of left forearm; M25.532 Pain in left wrist; M79.642 Pain in left hand
CPT/HCPCS: 73110; 73130

== ENCOUNTER → 2022-07-10 11:17 | Outpatient (CLI) | payer MEDICARE, SELFPAY ==
[2022-07-10 12:09] LABS: Appearance Urine UA SL CLOUDY; Bilirubin Urine UA NEGATIVE (NEGATIVE); Color Urine UA YELLOW; Glucose Urine UA NEGATIVE (Negative); Ketones Urine UA NEGATIVE (NEGATIVE); Leukocyte Esterase Urine UA 3+ (NEGATIVE); Nitrite Urine UA POSITIVE (Negative); Occult Blood Urine UA TRACE-LYSED (Negative); Protein Urine UA NEGATIVE (Negative); Specific Gravity Urine UA <=1.005 (1.000-1.035); Urobilinogen Urine UA 0.2 E.U./dL (0.2)
[2022-07-10 12:12] LABS: pH Urine UA 6.5 (4.5-8.0)
[2022-07-10 12:19] LABS: Bacteria Urine Many (>30); Culture Indicated Urine Specimen Cultured; RBC Urine None Seen (0-5/HPF); Squamous Epithelial Cell Urine 1-5 /HPF (0-5/HPF); WBC Urine 10-30/HPF (0-5/HPF)
== END ==
PROVIDERS: PCP Family Medicine; Referring Provider Family Medicine; Visit Provider Family Medicine
DX: R39.9 Unspecified symptoms and signs involving the genitourinary system (principal)
CPT/HCPCS: 81001; 87077; 87086; 87186

== ENCOUNTER → 2022-08-02 13:07 | Outpatient (CLI) | payer MEDICARE, SELFPAY ==
[2022-08-02 14:00] LABS: Appearance Urine UA SL CLOUDY; Bilirubin Urine UA NEGATIVE (NEGATIVE); Color Urine UA YELLOW; Glucose Urine UA NEGATIVE (Negative); Ketones Urine UA NEGATIVE (NEGATIVE); Leukocyte Esterase Urine UA 3+ (NEGATIVE); Nitrite Urine UA NEGATIVE (Negative); Occult Blood Urine UA TRACE-INTACT (Negative); Protein Urine UA NEGATIVE (Negative); Specific Gravity Urine UA <=1.005 (1.000-1.035); Urobilinogen Urine UA 0.2 E.U./dL (0.2)
[2022-08-02 14:10] LABS: Amorphous Sediment Urine 1+; Bacteria Urine None Seen; Culture Indicated Urine Specimen Cultured; RBC Urine None Seen (0-5/HPF); Squamous Epithelial Cell Urine None Seen (0-5/HPF); WBC Urine 30-100/HPF (0-5/HPF)
== END ==
PROVIDERS: PCP Family Medicine; Referring Provider Family Medicine; Visit Provider Family Medicine
DX: R39.9 Unspecified symptoms and signs involving the genitourinary system (principal)
CPT/HCPCS: 81001; 87086

== ENCOUNTER → 2022-11-20 07:39 | Outpatient (CLI) | payer MEDICARE, SELFPAY ==
[2022-11-20 08:53] LABS: Add Manual Diff / Slide Review NO; Basophils Absolute Auto 100 /uL (0-100); Basophils Percent Auto 1.2 % (0-2); Eosinophils Absolute Auto 200 /uL (0-450); Eosinophils Percent Auto 3.2 % (2-4); Hematocrit 41.2 % (36-46); Hemoglobin 13.9 g/dL (12.0-16.0); Lymphocytes Absolute Auto 1200 /uL (1100-4500); Lymphocytes Percent Auto 23.6 % (25-40); Mean Corpuscular HGB Conc 33.6 % (30-36); Mean Corpuscular Hemoglobin 30.2 PG (26-34); Mean Corpuscular Volume 89.8 fL (80-100); Monocytes Absolute Auto 900 /uL (0-900); Monocytes Percent Auto 16.6 % (3-14); Neutrophils Absolute Auto 2900 /uL (1500-7000); Neutrophils Percent Auto 55.4 % (50-75); Platelet Count 317 X10^3/uL (150-400); Red Blood Cell Count 4.59 X10^6/uL (4.0-5.2); Red Cell Distribution Width 14.1 % (11.6-14.8); White Blood Cell Count 5.2 X10^3/uL (4.5-11.0)
[2022-11-20 09:09] LABS: Alanine Aminotransferase 22 IU/L (<35); Albumin 3.9 g/dL (3.5-5.0); Albumin Globulin Ratio 1.3 (1.0-2.8); Alkaline Phosphatase 77 U/L (38-126); Aspartate Aminotransferase 30 IU/L (14-36); BUN Creatinine Ratio 18.5 (6-22); Bilirubin Total 0.5 mg/dL (0.2-1.3); Blood Urea Nitrogen 12 mg/dL (7-17); Calcium 8.9 mg/dL (8.4-10.2); Carbon Dioxide 30 mmol/L (22-32); Chloride 100 mmol/L (98-107); Estimated Glomerular Filt Rate > 60 mL/min (>60); Globulin 3.1 g/dL (1.7-4.1); Glucose 87 mg/dL (80-110); HEMOLYSIS < 15 (0-50); Potassium 4.5 mmol/L (3.4-5.1); Sodium 134 mmol/L (137-145)
[2022-11-20 11:03] LABS: TSH w/ Reflex to FT4 2.12 uIU/mL (0.47-4.68)
== END ==
PROVIDERS: PCP Family Medicine; Referring Provider Family Medicine; Visit Provider Family Medicine
DX: G47.00 Insomnia, unspecified (principal); M81.0 Age-related osteoporosis without current pathological fracture; R53.83 Other fatigue
CPT/HCPCS: 36415; 80053; 84443; 85025

== ENCOUNTER → 2022-12-24 12:31 | Outpatient (CLI) | payer MEDICARE, SELFPAY ==
--- NOTE | 2022-12-24 12:34 | DI.RAD.S_ITS ---
PROCEDURE: XR HAND RT MIN 3V INDICATIONS: dog bite+infection dorsum thumb MCP joint TECHNIQUE: 3 views of the hand(s) acquired. COMPARISON: None. FINDINGS: Bones: No fractures or dislocations. Carpal bones are normally aligned. No suspicious bony lesions. [id number] osteoarthritic changes in wrist and hand. No bony erosion. Osteopenia. Soft tissues: No suspicious soft tissue calcifications. No radiopaque soft tissue foreign body. IMPRESSION: 1. No acute osseous abnormality. 2. No radiopaque soft tissue foreign body. 3. [id number] osteoarthritic changes. 4. Osteopenia. Dictated by: Parviz Beatty M.D. on 12/24/2022 at 14:02 Approved by: Parviz Beatty M.D. on 12/24/2022 at 14:04
== END ==
PROVIDERS: PCP Family Medicine; Referring Provider Student in an Organized Health Care Education/Training Program; Visit Provider Student in an Organized Health Care Education/Training Program
DX: S61.451A Open bite of right hand, initial encounter (principal); L08.9 Local infection of the skin and subcutaneous tissue, unspecified; M85.841 Other specified disorders of bone density and structure, right hand; W54.0XXA Bitten by dog, initial encounter
CPT/HCPCS: 73130

== ENCOUNTER → 2023-06-18 15:41 | Outpatient (CLI) | payer MEDICARE, SELFPAY ==
--- NOTE | 2023-06-18 15:43 | DI.MG.S_ITS ---
BILATERAL DIGITAL SCREENING MAMMOGRAM 3D/2D WITH CAD: 06/18/2023 CLINICAL: Routine screening. Comparison is made to exams dated: 06/05/2022 mammogram, 05/01/2021 mammogram, and 03/19/2020 mammogram - [facility]. Both breasts are almost entirely fatty (category a/<25% glandular tissue). Current study was also evaluated with a Computer Aided Detection (CAD) system. There is a new round high density asymmetry with a microlobulated margin in the left breast anterior depth superior region seen on the mediolateral oblique view only. No other significant masses, calcifications, or other findings are seen in either breast. IMPRESSION: INCOMPLETE: NEEDS ADDITIONAL IMAGING EVALUATION The new round high density asymmetry in the left breast is indeterminate. Additional views with possible ultrasound are recommended. Based on the Tyrer Cuzick model (a risk assessment model) the patient's lifetime risk is 0.4% and her 10 year risk is 0.0%. According to the ACR, ACS, and NCCN guidelines, an annual breast MRI exam along with mammogram is recommended if the patient's lifetime risk is 20% or greater. This exam was interpreted at Station ID: [id number]. NOTE: For mammograms, a report in lay terms will be sent to the patient. Approximately 15% of breast malignancies will not be visualized mammographically. In the management of a palpable breast mass, a negative mammogram must not discourage biopsy of a clinically suspicious lesion. Electronically Signed By: Diane bland/tamera:06/19/2023 13:12:34 letter sent: Additional Imaging Needed ACR BI-RADS Category 0: Incomplete 3340F
== END ==
PROVIDERS: PCP Family Medicine; Referring Provider Family Medicine; Visit Provider Family Medicine
DX: Z12.31 Encounter for screening mammogram for malignant neoplasm of breast (principal)
CPT/HCPCS: 77063; 77067

== ENCOUNTER → 2023-07-18 11:54 | Outpatient (CLI) | payer MEDICARE, SELFPAY ==
--- NOTE | 2023-07-18 | DI.MG.S_ITS ---
UNILATERAL LEFT DIGITAL DIAGNOSTIC MAMMOGRAM 3D/2D WITH ADDITIONAL VIEWS: 07/18/2023 CLINICAL: Additional evaluation requested from prior study. Comparison is made to exams dated: 06/18/2023 mammogram, 06/05/2022 mammogram, and 05/01/2021 mammogram - [facility]. The left breast has scattered density (category b/25-50% glandular tissue). There is a 0.3 cm oval mass with a circumscribed margin in the left breast at 2 o'clock anterior depth. This corresponds to finding seen on recent screening mammogram. No other significant masses or calcifications are seen in the breast. IMPRESSION: INCOMPLETE: NEEDS ADDITIONAL IMAGING EVALUATION Left breast 0.3 cm oval circumscribed mass in the anterior upper outer quadrant. An ultrasound is recommended for further evaluation and is scheduled to immediately follow this examination. Based on the Tyrer Cuzick model (a risk assessment model) the patient's lifetime risk is 0.4% and her 10 year risk is 0.0%. According to the ACR, ACS, and NCCN guidelines, an annual breast MRI exam along with mammogram is recommended if the patient's lifetime risk is 20% or greater. This exam was interpreted at Station ID: [id number]. NOTE: For mammograms, a report in lay terms will be sent to the patient. Approximately 15% of breast malignancies will not be visualized mammographically. In the management of a palpable breast mass, a negative mammogram must not discourage biopsy of a clinically suspicious lesion. Electronically Signed By: Julia Brennan M.D., PH.D eb/:07/18/2023 12:39:21 ACR BI-RADS Category 0: Incomplete 3340F
--- NOTE | 2023-07-18 11:56 | DI.US.S_ITS ---
LIMITED ULTRASOUND OF LEFT BREAST: 07/18/2023 CLINICAL: Additional evaluation requested from prior study. Comparison is made to exams dated: 07/18/2023 mammogram, 06/18/2023 mammogram, 06/05/2022 ultrasound, 06/05/2022 mammogram, 05/01/2021 ultrasound, and 05/01/2021 mammogram - [facility]. Real-time ultrasound of the left breast 1-2 o'clock region was performed. Arizmendi scale images of the real-time examination were reviewed. There is a round simple cyst in the left breast at 2 o'clock, 1 cm from the nipple measuring 0.3 cm. This cyst corresponds to the mass seen on mammogram. There are adjacent incidental benign simple cysts at 1 o'clock, 1 cm from the nipple. IMPRESSION: BENIGN Left breast simple cysts at 1 and 2 o'clock are benign. No mammographic or targeted sonographic evidence of malignancy. A 1 year screening mammogram is recommended. Findings and recommendations were conveyed to the patient during today's evaluation. This exam was interpreted at Station ID: [id number]. Electronically Signed By: Julia Brennan M.D., PH.D eb/:07/18/2023 13:56:46 letter sent: Normal Exam Ultrasound BI-RADS: 2 Benign
== END ==
PROVIDERS: PCP Family Medicine; Referring Provider Family Medicine; Visit Provider Family Medicine
DX: R92.8 Other abnormal and inconclusive findings on diagnostic imaging of breast (principal); N60.02 Solitary cyst of left breast
CPT/HCPCS: 76642; 77065; G0279

== ENCOUNTER → 2023-08-19 15:57 | Outpatient (CLI) | payer MEDICARE, SELFPAY ==
[2023-08-19 16:34] LABS: Appearance Urine UA CLEAR; Bilirubin Urine UA NEGATIVE (NEGATIVE); Color Urine UA YELLOW; Glucose Urine UA NEGATIVE (Negative); Ketones Urine UA NEGATIVE (NEGATIVE); Leukocyte Esterase Urine UA 1+ (NEGATIVE); Nitrite Urine UA NEGATIVE (Negative); Occult Blood Urine UA NEGATIVE (Negative); Protein Urine UA NEGATIVE (Negative); Specific Gravity Urine UA <=1.005 (1.000-1.035); Urobilinogen Urine UA 0.2 E.U./dL (0.2)
[2023-08-19 16:46] LABS: Bacteria Urine Many (>30); Culture Indicated Urine Specimen Cultured; RBC Urine None Seen (0-5/HPF); Squamous Epithelial Cell Urine 1-5 /HPF (0-5/HPF); Urine Volume 10mL (spun); WBC Urine 1-5/HPF (0-5/HPF)
== END ==
LOC: LAB 15:58
PROVIDERS: PCP Family Medicine; Referring Provider Family Medicine; Visit Provider Family Medicine
DX: R39.9 Unspecified symptoms and signs involving the genitourinary system (principal)
CPT/HCPCS: 81001; 87077; 87086; 87186

== ENCOUNTER → 2023-09-24 15:56 | Outpatient (CLI) | payer MEDICARE, SELFPAY | PROVIDERS: PCP Family Medicine; Visit Provider Family Medicine | DX: N39.0 Urinary tract infection, site not specified (principal) | CPT/HCPCS: 87077; 87086; 87186 ==

== ENCOUNTER → 2023-10-08 08:52 | Outpatient (CLI) | payer MEDICARE, SELFPAY ==
[2023-10-08 09:58] LABS: Appearance Urine UA SL CLOUDY; Bilirubin Urine UA NEGATIVE (NEGATIVE); Color Urine UA YELLOW; Glucose Urine UA NEGATIVE (Negative); Ketones Urine UA NEGATIVE (NEGATIVE); Leukocyte Esterase Urine UA 3+ (NEGATIVE); Nitrite Urine UA POSITIVE (Negative); Occult Blood Urine UA TRACE-INTACT (Negative); Protein Urine UA NEGATIVE (Negative); Specific Gravity Urine UA <=1.005 (1.000-1.035); Urobilinogen Urine UA 0.2 E.U./dL (0.2)
[2023-10-08 10:01] LABS: pH Urine UA 5.5 (4.5-8.0)
[2023-10-08 10:05] LABS: Bacteria Urine Many (>30); Culture Indicated Urine Specimen Cultured; RBC Urine None Seen (0-5/HPF); Squamous Epithelial Cell Urine 5-10 /HPF (0-5/HPF); Urine Volume 10mL (spun); WBC Urine 30-100/HPF (0-5/HPF)
== END ==
PROVIDERS: PCP Family Medicine; Referring Provider Family Medicine; Visit Provider Family Medicine
DX: N39.0 Urinary tract infection, site not specified (principal)
CPT/HCPCS: 81001; 87077; 87086; 87186

== ENCOUNTER → 2023-10-21 11:07 | Outpatient (CLI) | payer MEDICARE, SELFPAY ==
[2023-10-21 13:09] LABS: Appearance Urine UA CLEAR; Bilirubin Urine UA NEGATIVE (NEGATIVE); Color Urine UA YELLOW; Glucose Urine UA NEGATIVE (Negative); Ketones Urine UA NEGATIVE (NEGATIVE); Leukocyte Esterase Urine UA 2+ (NEGATIVE); Nitrite Urine UA NEGATIVE (Negative); Occult Blood Urine UA NEGATIVE (Negative); Protein Urine UA NEGATIVE (Negative); Specific Gravity Urine UA <=1.005 (1.000-1.035); Urobilinogen Urine UA 0.2 E.U./dL (0.2)
[2023-10-21 13:10] LABS: pH Urine UA 6.5 (4.5-8.0)
[2023-10-21 13:15] LABS: Bacteria Urine Many (>30); Culture Indicated Urine Specimen Cultured; RBC Urine None Seen (0-5/HPF); Squamous Epithelial Cell Urine 1-5 /HPF (0-5/HPF); Urine Volume 10mL (spun); WBC Urine 30-100/HPF (0-5/HPF)
== END ==
PROVIDERS: PCP Family Medicine; Referring Provider Family Medicine; Visit Provider Family Medicine
DX: N39.0 Urinary tract infection, site not specified (principal)
CPT/HCPCS: 81001; 87077; 87086; 87186

== ENCOUNTER → 2023-11-13 07:02 | Outpatient (CLI) | payer MEDICARE, SELFPAY ==
[2023-11-13 07:40] LABS: Add Manual Diff / Slide Review NO; Basophils Absolute Auto 100 /uL (0-100); Basophils Percent Auto 1.6 % (0-2); Eosinophils Absolute Auto 100 /uL (0-450); Eosinophils Percent Auto 2.6 % (2-4); Hematocrit 40.7 % (36-46); Hemoglobin 13.8 g/dL (12.0-16.0); Lymphocytes Absolute Auto 1800 /uL (1100-4500); Lymphocytes Percent Auto 36.8 % (25-40); Mean Corpuscular Hemoglobin 30.7 PG (26-34); Mean Corpuscular Volume 90.4 fL (80-100); Monocytes Absolute Auto 700 /uL (0-900); Monocytes Percent Auto 14.8 % (3-14); Neutrophils Absolute Auto 2200 /uL (1500-7000); Neutrophils Percent Auto 44.2 % (50-75); Platelet Count 327 X10^3/uL (150-400)
[2023-11-13 08:00] LABS: BUN Creatinine Ratio 21.1 (6-22); Blood Urea Nitrogen 12 mg/dL (7-17); Calcium 8.8 mg/dL (8.4-10.2); Carbon Dioxide 30 mmol/L (22-32); Chloride 101 mmol/L (98-107); Estimated Glomerular Filt Rate > 60 mL/min (>60); Glucose 85 mg/dL (80-110); HEMOLYSIS < 15 (0-50); Potassium 4.3 mmol/L (3.4-5.1); Sodium 133 mmol/L (137-145)
== END ==
PROVIDERS: PCP Family Medicine; Referring Provider Internal Medicine Cardiovascular Disease; Visit Provider Internal Medicine Cardiovascular Disease
DX: I48.0 Paroxysmal atrial fibrillation (principal)
CPT/HCPCS: 36415; 80048; 85025

== ENCOUNTER → 2024-02-08 11:13 | Outpatient (CLI) | payer MEDICARE, SELFPAY ==
--- NOTE | 2024-02-08 11:15 | DI.RAD.S_ITS ---
PROCEDURE: XR FOOT LT MIN 3V INDICATIONS: Ankle swelling/pain, foot pain, toe pain TECHNIQUE: 3 views of the foot were acquired. COMPARISON: None. FINDINGS: Bones: No fractures or dislocations. No suspicious bony lesions. There is varus angulation of the 1st metatarsal with compensatory valgus angulation of the 1st proximal phalanx reflecting hallux valgus. Second through 5th tarsometatarsal arthritic changes Soft tissues: No tibiotalar joint effusion. Achilles tendon appears normal. IMPRESSION: Hoc valgus. No fracture or foreign body. Approved by: Mark Rivera M.D. on 02/08/2024 at 10:37
--- NOTE | 2024-02-08 11:15 | DI.RAD.S_ITS ---
PROCEDURE: XR ANKLE LT MIN 3V INDICATIONS: Ankle swelling/pain, foot pain TECHNIQUE: 3 views of the ankle were acquired. COMPARISON: None. FINDINGS: Bones: No fractures or dislocations. Ankle mortise is normally aligned. No suspicious bony lesions. Soft tissues: No tibiotalar joint effusion. Achilles tendon appears normal. IMPRESSION: No acute bony abnormality or significant effusion. Approved by: Mark Rivera M.D. on 02/08/2024 at 10:36
== END ==
PROVIDERS: PCP Family Medicine; Referring Provider Physician Assistant Surgical; Visit Provider Physician Assistant Surgical
DX: M20.12 Hallux valgus (acquired), left foot (principal); M79.672 Pain in left foot; M25.572 Pain in left ankle and joints of left foot
CPT/HCPCS: 73610; 73630

== ENCOUNTER → 2024-03-04 10:57 | Outpatient (CLI) | payer MEDICARE, SELFPAY ==
[2024-03-04 14:41] LABS: Appearance Urine UA CLEAR; Bilirubin Urine UA NEGATIVE (NEGATIVE); Color Urine UA YELLOW; Glucose Urine UA NEGATIVE (Negative); Ketones Urine UA NEGATIVE (NEGATIVE); Leukocyte Esterase Urine UA 1+ (NEGATIVE); Nitrite Urine UA NEGATIVE (Negative); Occult Blood Urine UA NEGATIVE (Negative); Protein Urine UA NEGATIVE (Negative); Specific Gravity Urine UA <=1.005 (1.000-1.035); Urobilinogen Urine UA 0.2 E.U./dL (0.2)
[2024-03-04 14:45] LABS: pH Urine UA 6.5 (4.5-8.0)
[2024-03-04 14:46] LABS: Hematocrit 39.9 % (36-46); Hemoglobin 13.6 g/dL (12.0-16.0); Mean Corpuscular Hemoglobin 30.3 PG (26-34); Mean Corpuscular Volume 89.1 fL (80-100); Platelet Count 300 X10^3/uL (150-400); Red Blood Cell Count 4.48 X10^6/uL (4.0-5.2); Red Cell Distribution Width 14.7 % (11.6-14.8); White Blood Cell Count 5.5 X10^3/uL (4.5-11.0)
[2024-03-04 14:47] LABS: Add Manual Diff / Slide Review YES
[2024-03-04 14:56] LABS: Bacteria Urine Moderate (10-30); Culture Indicated Urine Specimen Cultured; RBC Urine None Seen (0-5/HPF); Squamous Epithelial Cell Urine 0-1 /HPF (0-5/HPF); Urine Volume 10mL (spun); WBC Urine 5-10/HPF (0-5/HPF)
[2024-03-04 15:03] LABS: Neutrophils Absolute Manual 2420 /uL (3000-5900); RBC Morphology Normal Morphology; Total Cells Counted 100
[2024-03-04 15:21] LABS: Alanine Aminotransferase 44 IU/L (<35); Albumin 3.8 g/dL (3.5-5.0); Albumin Globulin Ratio 1.4 (1.0-2.8); Alkaline Phosphatase 120 U/L (38-126); Aspartate Aminotransferase 55 IU/L (14-36); BUN Creatinine Ratio 24.2 (6-22); Bilirubin Total 0.3 mg/dL (0.2-1.3); Blood Urea Nitrogen 16 mg/dL (7-17); Calcium 8.7 mg/dL (8.4-10.2); Carbon Dioxide 29 mmol/L (22-32); Chloride 95 mmol/L (98-107); Estimated Glomerular Filt Rate > 60 mL/min (>60); Globulin 2.8 g/dL (1.7-4.1); Glucose 89 mg/dL (80-110); HEMOLYSIS < 15 (0-50); Potassium 4.4 mmol/L (3.4-5.1); Sodium 130 mmol/L (137-145); Total Protein 6.6 g/dL (6.3-8.2)
== END ==
PROVIDERS: PCP Family Medicine; Referring Provider Family Medicine; Visit Provider Family Medicine
DX: R50.9 Fever, unspecified (principal); N39.0 Urinary tract infection, site not specified
CPT/HCPCS: 36415; 80053; 81001; 85007; 85025; 87086

== ENCOUNTER → 2024-04-02 07:03 | Outpatient (CLI) | payer MEDICARE, SELFPAY ==
[2024-04-02 08:35] LABS: HEMOLYSIS < 15 (0-50); Iron 109 ug/dL (37-170)
[2024-04-02 08:48] LABS: Percent Iron Saturation 26 % (15-50); Total Iron Binding Capacity 413 ug/dL (265-497); Transferrin 317 mg/dL (206-381)
[2024-04-02 09:10] LABS: Ferritin 22 ng/mL (11-264)
== END ==
PROVIDERS: PCP Family Medicine; Referring Provider Nurse Practitioner; Visit Provider Nurse Practitioner
DX: E83.10 Disorder of iron metabolism, unspecified (principal); G47.33 Obstructive sleep apnea (adult) (pediatric); G25.81 Restless legs syndrome; R40.0 Somnolence
CPT/HCPCS: 36415; 82728; 83540; 83550

== ENCOUNTER → 2024-05-11 12:11 | Outpatient (CLI) | payer MEDICARE, SELFPAY ==
[2024-05-11 13:33] LABS: Appearance Urine UA SL CLOUDY; Bilirubin Urine UA NEGATIVE (NEGATIVE); Color Urine UA YELLOW; Glucose Urine UA NEGATIVE (Negative); Ketones Urine UA NEGATIVE (NEGATIVE); Leukocyte Esterase Urine UA 3+ (NEGATIVE); Nitrite Urine UA NEGATIVE (Negative); Occult Blood Urine UA TRACE-INTACT (Negative); Protein Urine UA NEGATIVE (Negative); Specific Gravity Urine UA <=1.005 (1.000-1.035); Urine Volume 10mL (spun); Urobilinogen Urine UA 0.2 E.U./dL (0.2); pH Urine UA 5.5 (4.5-8.0)
[2024-05-11 13:37] LABS: Bacteria Urine Moderate (10-30); Culture Indicated Urine Specimen Cultured; RBC Urine 1-5/HPF (0-5/HPF); Squamous Epithelial Cell Urine 1-5 /HPF (0-5/HPF); WBC Urine 10-30/HPF (0-5/HPF)
== END ==
PROVIDERS: PCP Family Medicine; Referring Provider Family Medicine; Visit Provider Family Medicine
DX: R30.9 Painful micturition, unspecified (principal); R35.0 Frequency of micturition; R82.90 Unspecified abnormal findings in urine; N30.01 Acute cystitis with hematuria
CPT/HCPCS: 81001; 87077; 87086

== ENCOUNTER → 2024-06-15 12:56 | Outpatient (CLI) | payer MEDICARE, SELFPAY ==
[2024-06-15 13:29] LABS: Appearance Urine UA CLEAR; Bilirubin Urine UA NEGATIVE (NEGATIVE); Color Urine UA YELLOW; Glucose Urine UA NEGATIVE (Negative); Ketones Urine UA NEGATIVE (NEGATIVE); Leukocyte Esterase Urine UA 3+ (NEGATIVE); Nitrite Urine UA NEGATIVE (Negative); Occult Blood Urine UA TRACE-INTACT (Negative); Protein Urine UA NEGATIVE (Negative); Specific Gravity Urine UA <=1.005 (1.000-1.035); Urobilinogen Urine UA 0.2 E.U./dL (0.2)
[2024-06-15 13:35] LABS: pH Urine UA 5.5 (4.5-8.0)
[2024-06-15 13:36] LABS: Urine Volume 10mL (spun)
[2024-06-15 13:37] LABS: Bacteria Urine None Seen; Culture Indicated Urine Specimen Cultured; RBC Urine 0-1/HPF (0-5/HPF); Squamous Epithelial Cell Urine 1-5 /HPF (0-5/HPF); WBC Urine 10-30/HPF (0-5/HPF)
== END ==
PROVIDERS: PCP Family Medicine; Referring Provider Family Medicine; Visit Provider Family Medicine
DX: R30.0 Dysuria (principal)
CPT/HCPCS: 81001; 87077; 87086; 87186

== ENCOUNTER → 2024-06-30 13:36 | Outpatient (CLI) | payer MEDICARE, SELFPAY ==
[2024-06-30 15:23] LABS: Appearance Urine UA SL CLOUDY; Bilirubin Urine UA NEGATIVE (NEGATIVE); Color Urine UA YELLOW; Glucose Urine UA NEGATIVE (Negative); Ketones Urine UA NEGATIVE (NEGATIVE); Leukocyte Esterase Urine UA 3+ (NEGATIVE); Nitrite Urine UA NEGATIVE (Negative); Occult Blood Urine UA 2+ (Negative); Protein Urine UA TRACE (Negative); Specific Gravity Urine UA <=1.005 (1.000-1.035); Urobilinogen Urine UA 0.2 E.U./dL (0.2)
[2024-06-30 15:38] LABS: RBC Urine 0-1/HPF (0-5/HPF); Urine Volume 10mL (spun); WBC Urine 10-30/HPF (0-5/HPF)
[2024-06-30 15:39] LABS: Bacteria Urine Many (>30); Mucus Urine 2+ (Negative); Squamous Epithelial Cell Urine 10-30 /HPF (0-5/HPF)
== END ==
PROVIDERS: PCP Family Medicine; Referring Provider Urology; Visit Provider Urology
DX: N39.0 Urinary tract infection, site not specified (principal)
CPT/HCPCS: 81001; 87086

== ENCOUNTER → 2024-07-22 13:11 | Outpatient (CLI) | payer MEDICARE, SELFPAY ==
--- NOTE | 2024-07-22 13:11 | DI.MG.S_ITS ---
BILATERAL DIGITAL SCREENING MAMMOGRAM 3D/2D WITH CAD: 07/22/2024 CLINICAL: Routine screening. Comparison is made to exams dated: 06/18/2023 mammogram, 06/05/2022 mammogram, and 05/01/2021 mammogram - [facility]. There are scattered areas of fibroglandular density (category b / 25%-50% glandular tissue). Current study was also evaluated with a Computer Aided Detection (CAD) system. There is a biopsy clip in the left breast. No significant masses, calcifications, or other findings are seen in either breast. There has been no significant interval change. IMPRESSION: BENIGN There is no mammographic evidence of malignancy. A 1 year screening mammogram is recommended. Based on the Tyrer Cuzick model (a risk assessment model) the patient's lifetime risk is 0.3% and her 10 year risk is 0.0%. According to the ACR, ACS, and NCCN guidelines, an annual breast MRI exam along with mammogram is recommended if the patient's lifetime risk is 20% or greater. This exam was interpreted at Station ID: [id number]. NOTE: For mammograms, a report in lay terms will be sent to the patient. Approximately 15% of breast malignancies will not be visualized mammographically. In the management of a palpable breast mass, a negative mammogram must not discourage biopsy of a clinically suspicious lesion. Electronically Signed By: Julia Brennan M.D., Ph.D. sixto/tamera:07/22/2024 16:35:28 letter sent: Normal Exam ACR BI-RADS Category 2: Benign
== END ==
PROVIDERS: PCP Family Medicine; Referring Provider Family Medicine; Visit Provider Family Medicine
DX: Z12.31 Encounter for screening mammogram for malignant neoplasm of breast (principal)
CPT/HCPCS: 77063; 77067

== ENCOUNTER → 2024-08-19 12:56 | Outpatient (CLI) | payer MEDICARE, SELFPAY ==
[2024-08-19 14:01] LABS: BUN Creatinine Ratio 18.6 (6-22); Blood Urea Nitrogen 13 mg/dL (7-17); Estimated Glomerular Filt Rate > 60 mL/min (>60)
== END ==
PROVIDERS: PCP Family Medicine; Referring Provider Urology; Visit Provider Urology
DX: N39.0 Urinary tract infection, site not specified (principal)
CPT/HCPCS: 36415; 82565; 84520

== ENCOUNTER → 2024-11-10 15:03 | Outpatient (CLI) | payer MEDICARE, SELFPAY ==
[2024-11-10 16:07] LABS: Hematocrit 40.9 % (36-46); Hemoglobin 14.1 g/dL (12.0-16.0); Mean Corpuscular HGB Conc 34.4 % (30-36); Mean Corpuscular Hemoglobin 31.4 PG (26-34); Platelet Count 300 X10^3/uL (150-400); Red Blood Cell Count 4.49 X10^6/uL (4.0-5.2); Red Cell Distribution Width 14.4 % (11.6-14.8); White Blood Cell Count 8.2 X10^3/uL (4.5-11.0)
[2024-11-10 16:27] LABS: BUN Creatinine Ratio 19.4 (6-22); Blood Urea Nitrogen 14 mg/dL (7-17); Calcium 8.9 mg/dL (8.4-10.2); Carbon Dioxide 29 mmol/L (22-32); Chloride 98 mmol/L (98-107); Estimated Glomerular Filt Rate > 60 mL/min (>60); Glucose 80 mg/dL (70-99); HEMOLYSIS < 15 (0-50); Potassium 4.6 mmol/L (3.4-5.1); Sodium 135 mmol/L (137-145)
== END ==
PROVIDERS: PCP Family Medicine; Referring Provider Internal Medicine Cardiovascular Disease; Visit Provider Internal Medicine Cardiovascular Disease
DX: Z79.01 Long term (current) use of anticoagulants (principal); N13.30 Unspecified hydronephrosis; I48.0 Paroxysmal atrial fibrillation
CPT/HCPCS: 36415; 80048; 85027

== ENCOUNTER 2025-03-10 13:45 | Outpatient (RCR) | payer MEDICARE, SELFPAY ==
--- NOTE | 2024-12-23 14:21 | PT.OIE ---
Current Diagnoses Other chronic pain (12/23/24) Low back pain, unspecified (12/23/24) Pain in right foot (12/23/24) History of falling (12/23/24) Past Medical History (Last Updated 11/25/24 @ 14:47 by Julius Sandoval DO) Abnormality of breast on screening mammography Anemia (~1966) Athlete's foot on left Bilateral bunions Bradycardia Cataracts, bilateral Celiac disease (~2008) Cervical somatic dysfunction Chicken pox Chronic instability of right knee Chronic midline low back pain without sciatica Chronic pain in right shoulder Cranial somatic dysfunction Fatigue Foot fracture, right (~1994) Frequent UTI (~2012) Gluten enteropathy Hearing loss History of recurrent ear infection Insomnia Left hand pain Left wrist pain Measles Mumps Osteoarthritis (~2020) Osteopenia Osteoporosis Pacemaker Pain, foot, right, chronic Passage of loose stools Risk for falls Ruptured tympanic membrane Short leg syndrome, right, acquired Skin cancer (~2016) Somatic dysfunction of lower extremity Stress incontinence Upper extremity somatic dysfunction Wears glasses Past Surgical History (Last Updated 09/24/23 @ 16:20 by Diamond Hollingsworth DO) Anesthesia History of bladder suspension procedure (~2007) History of hip replacement (~2010) History of hip replacement (~2012) History of left knee replacement (~2014) Prolapsed uterus (~2008) Visit Care Team Role Provider Type Julius Sandoval DO Attending Provider Physician Family Provider Primary Care Provider Referring Provider Specialty: Family Practice Address: [address] [place] [address], [facility] Email: Physical Therapy Initial Evaluation PT-OP-A Visit Information Start: 12/23/24 13:52 Freq: Status: Active Protocol: Document 12/23/24 10:45 DCW (Rec: 12/23/24 14:06 DC [id number]) Out-Patient Physical Therapy Visit Information Visit Information Visit Type Initial Evaluation Visit Start Time 10:45 Visit Stop Time 11:30 Visit Number 1 Number of LINING FOLDER Visits 0 Evaluation Information Evaluation Date 12/23/24 PT-OP-B Current Condition Start: 12/23/24 13:52 Freq: Status: Active Protocol: Document 12/23/24 10:45 DCW (Rec: 12/23/24 14:06 DCW [id number]) Current Condition History of Current Condition Current Complaints Increased fear of falling, difficulty with walking on uneven surfaces History of Current Pt is an 84 year old female presenting with general Condition complaints of balance and stability deficits. Pt reports she has decreased confidence with uneven surfaces and when out walking her dog. Notes she has had occasional falls, but has not injured herself. Is planning to go on vacation to [facility] in March with her daughter. Walks [place] with her dog. Notes she tries to use trekking poles when on trails. Treatment Goals Patient/Caregiver Improve confidence with her gait/balance Goals PT-OP-C Subjective Start: 12/23/24 13:52 Freq: Status: Active Protocol: Document 12/23/24 10:45 DCW (Rec: 12/23/24 14:06 DCW [id number]) OP-PT Subjective Patient Comments Patient Comments Pt notes general decline is balance over the past few years. Patient Reported Worse Progress Patient Questionnaires Lower Extremity Functional Scale LEFS Score 63/80 = 78.75% LEFS Impairment 1 to 19% Impaired (Score 63-79) PT-OP-D Balance Start: 12/23/24 13:52 Freq: Status: Active Protocol: Document 12/23/24 10:45 DCW (Rec: 12/23/24 14:06 DCW [id number]) Balance Tests Love Balance Test Love Balance Test 44/56 Score Love Balance Assessment Evaluation Sitting to Standing Independent w/out Hands Ability Unsupported Stance Safely- 2 minutes Sitting Unsupported, Safely- 2 minutes Feet on Floor Standing to Sitting Safely, Minimal Hand Use Ability Transfer Ability Safely, Minimal Hand Use Unsupported Stance- Supervision, 10 seconds Eyes Closed Unsupported Stance- Independent, 1 minute Eyes Open Reaching Forward Confidently, 10 inches Standing Pick- Up Object From Independent/Safe Floor Look Behind Shoulder Shifts Weight Well - Standing Turning 360 Degrees Turns slowly, but safely Unsupported Stance, Assist to Prevent Fall Alternating Feet on Stair Unsupported Tandem Small Step- 30 seconds Stance Unilateral Leg Lifts Leg/Unable to Hold Stance Total Score Love Total Score ( 44 out of 56 points) Love Impairment 20 to 39% Impaired (Score 34-44) Rating PT-OP-E Functional Tests Start: 12/23/24 13:52 Freq: Status: Active Protocol: Document 12/23/24 10:45 DCW (Rec: 12/23/24 14:06 DCW [id number]) Functional Tests Dynamic Gait Index (DGI) Score 18/24 DGI Impairment 20 to <40% Impaired (Score 15-19) Rating Functional Gait Assessment Score 19/30 Functional Gait 20 to <40% Impaired (Score 19-24) Assessment Impairment Rating PT-OP-M Strength Start: 12/23/24 13:52 Freq: Status: Active Protocol: Document 12/23/24 10:45 DCW (Rec: 12/23/24 14:06 DCW [id number]) Hip Strength Hip Manual Muscle Testing Right Flexion (L2) 3+ Fair+ Extension (S1) 3+ Fair+ Abduction 4- Good- Adduction 4 Good External Rotation 4 Good Internal Rotation 4- Good- Left Flexion (L2) 3+ Fair+ Extension (S1) 3+ Fair+ Abduction 4- Good- Adduction 4 Good External Rotation 4 Good Internal Rotation 4- Good- Knee Strength Knee Manual Muscle Testing Right Flexion (S2) 5 Normal Extension (L3) 5 Normal Left Flexion (S2) 5 Normal Extension (L3) 5 Normal Ankle/Foot Strength Ankle and Foot Manual Muscle Testing Right Dorsiflexion (L4) 5 Normal Plantarflexion (S1) 3+ Fair+ Left Dorsiflexion (L4) 4+ Good+ Plantarflexion (S1) 4 Good PT-OP-T Assessment and Plan Start: 12/23/24 13:52 Freq: Status: Active Protocol: Document 12/23/24 10:45 DCW (Rec: 12/23/24 14:20 DCW [id number]) Physical Therapy Assessment Rehab Potential Rehabilitation Good Potential Evaluation Complexity Number of Personal 3 or More Factors/ Comorbidities Number of Body 4 or More Systems Impaired Clinical Unstable Presentation at Evaluation Impairments Impairments Activity Tolerance,Balance,Functional Activities, Functional Mobility,Soft Tissue Mobility,Strength Goals Three Impairment Pt displays bilateral hip weakness, particularly hip flex and ext (3+/5) Fci Goal (LTG) Pt to demonstrate an increase in hip strength to at least 4/5 in all planes in order to help stabilize pelvis during gait to improve functional balance. LTG Duration 02/22/25 Two Impairment Pt exhibits increased falls risk, per Love score (44/56 ) and FGA (19/30) Buncher Hand Goal (LTG) Pt to improve score of the Love Balance Scale by at least 5 points to 49/56 in order to demonstrate decrease in risk of falls. LTG Duration 02/22/25 One Impairment Pt does not have an appropriate home exercise program Short Term Goal (STG Pt to be independent and compliant with an appropriate ) HEP STG Duration 01/22/25 Assessment Summary Assessment Pt presents with signs and symptoms consistent with referring diagnosis. Love Balance, DGI, and FGA score all indicative of mildly increased risk of falls. Pt also exhibits bilateral hip weakness (flexion and extension 3+/5) and right plantar flexion weakness (3+/ 5). Pt will likely benefit from skilled therapeutic intervention focusing on LE strengthening, static/ dynamic balance challenges, gait training, and decreasing fear of falling. Physical Therapy Plan Frequency and Duration Frequency of 2x/Week Treatment Plan of Care Start 12/23/24 Date Plan of Care End 02/22/25 Date Therapeutic Interventions Therapeutic Balance Training,Gait Training,Home Exercise Program, Interventions Joint Mobilizations,Manual Therapy,Patient/Caregiver Education,Self-Care/Home Management,Soft Tissue Mobilization,Therapeutic Activities,Therapeutic Exercises,Vestibular Rehabilitation Next Visit Focus/Plan Next Note Type Treatment Note Next Visit Plan Balance training, functional mobility, strengthening
--- NOTE | 2024-12-23 14:21 | PT.OPPOC ---
Physical, Occupational & Speech Therapy At [facility] Current Diagnoses Other chronic pain (12/23/24) Low back pain, unspecified (12/23/24) Pain in right foot (12/23/24) History of falling (12/23/24) Visit Care Team Role Provider Type Julius Sandoval DO Attending Provider Physician Family Provider Primary Care Provider Referring Provider Specialty: Family Practice Address: [address] [place] [address], [facility] Email: Plan Of Care PT-OP-B Current Condition Start: 12/23/24 13:52 Freq: Status: Active Protocol: Document 12/23/24 10:45 DCW (Rec: 12/23/24 14:06 DCW [id number]) Current Condition History of Current Condition Current Complaints Increased fear of falling, difficulty with walking on uneven surfaces History of Current Pt is an 84 year old female presenting with general Condition complaints of balance and stability deficits. Pt reports she has decreased confidence with uneven surfaces and when out walking her dog. Notes she has had occasional falls, but has not injured herself. Is planning to go on vacation to [facility] in March with her daughter. Walks [place] with her dog. Notes she tries to use trekking poles when on trails. Treatment Goals Patient/Caregiver Improve confidence with her gait/balance Goals PT-OP-T Assessment and Plan Start: 12/23/24 13:52 Freq: Status: Active Protocol: Document 12/23/24 10:45 DCW (Rec: 12/23/24 14:20 DCW [id number]) Physical Therapy Assessment Rehab Potential Rehabilitation Good Potential Evaluation Complexity Number of Personal 3 or More Factors/ Comorbidities Number of Body 4 or More Systems Impaired Clinical Unstable Presentation at Evaluation Impairments Impairments Activity Tolerance,Balance,Functional Activities, Functional Mobility,Soft Tissue Mobility,Strength Goals Three Impairment Pt displays bilateral hip weakness, particularly hip flex and ext (3+/5) Penitentiary Goal (LTG) Pt to demonstrate an increase in hip strength to at least 4/5 in all planes in order to help stabilize pelvis during gait to improve functional balance. LTG Duration 02/22/25 Two Impairment Pt exhibits increased falls risk, per Love score (44/56 ) and FGA (19/30) Straightening Roll Operator Goal (LTG) Pt to improve score of the Love Balance Scale by at least 5 points to 49/56 in order to demonstrate decrease in risk of falls. LTG Duration 02/22/25 One Impairment Pt does not have an appropriate home exercise program Short Term Goal (STG Pt to be independent and compliant with an appropriate ) HEP STG Duration 01/22/25 Assessment Summary Assessment Pt presents with signs and symptoms consistent with referring diagnosis. Love Balance, DGI, and FGA score all indicative of mildly increased risk of falls. Pt also exhibits bilateral hip weakness (flexion and extension 3+/5) and right plantar flexion weakness (3+/ 5). Pt will likely benefit from skilled therapeutic intervention focusing on LE strengthening, static/ dynamic balance challenges, gait training, and decreasing fear of falling. Physical Therapy Plan Frequency and Duration Frequency of 2x/Week Treatment Plan of Care Start 12/23/24 Date Plan of Care End 02/22/25 Date Therapeutic Interventions Therapeutic Balance Training,Gait Training,Home Exercise Program, Interventions Joint Mobilizations,Manual Therapy,Patient/Caregiver Education,Self-Care/Home Management,Soft Tissue Mobilization,Therapeutic Activities,Therapeutic Exercises,Vestibular Rehabilitation Next Visit Focus/Plan Next Note Type Treatment Note Next Visit Plan Balance training, functional mobility, strengthening Plan of Care Dates Plan of Care Start Date 12/23/24 Plan of Care End Date 02/22/25 Electronically Signed by: Jass Miranda, PT 12/23/24 5006 If you are in agreement with this Plan of Care, please return a signed and dated copy. I have reviewed this Plan of Care and certify that the skilled therapy services above are required to meet the patient?s needs. Physician Signature Date Printed Name and Credentials Clinical Instructor Signature Printed Name and Credentials
--- NOTE | 2024-12-30 17:44 | PT.OTN ---
Addendum entered and electronically signed by Jass Miranda, PT 12/30/24 17:47: PT direct supervision and direction to student PT Sammy Linda throughout session Original Note: Current Diagnoses Other chronic pain (12/30/24) Low back pain, unspecified (12/30/24) Pain in right foot (12/30/24) History of falling (12/30/24) Physical Therapy Treatment Note PT-OP-A Visit Information Start: 12/23/24 13:52 Freq: Status: Active Protocol: Document 12/30/24 16:16 LFG (Rec: 12/30/24 17:22 LFG [id number]) Out-Patient Physical Therapy Visit Information Visit Information Visit Type Treatment Note Visit Start Time 16:16 Visit Stop Time 16:58 Visit Number 3 Number of WOMEN'S MINISTRY DIRECTOR Visits 0 Evaluation Information Evaluation Date 12/23/24 PT-OP-B Current Condition Start: 12/23/24 13:52 Freq: Status: Active Protocol: Document 12/23/24 10:45 DCW (Rec: 12/23/24 14:06 DCW [id number]) Current Condition History of Current Condition Current Complaints Increased fear of falling, difficulty with walking on uneven surfaces History of Current Pt is an 84 year old female presenting with general Condition complaints of balance and stability deficits. Pt reports she has decreased confidence with uneven surfaces and when out walking her dog. Notes she has had occasional falls, but has not injured herself. Is planning to go on vacation to [facility] in March with her daughter. Walks [place] with her dog. Notes she tries to use trekking poles when on trails. Treatment Goals Patient/Caregiver Improve confidence with her gait/balance Goals PT-OP-C Subjective Start: 12/23/24 13:52 Freq: Status: Active Protocol: Document 12/30/24 16:16 LFG (Rec: 12/30/24 17:22 LFG [id number]) OP-PT Subjective Patient Comments Patient Comments Pt asks about her HEP and would like to quickly review a few discrepancies she has about a few exercise and about the tightness of her band (loose). PT-OP-D Balance Start: 12/23/24 13:52 Freq: Status: Active Protocol: Document 12/23/24 10:45 DCW (Rec: 12/23/24 14:06 DCW [id number]) Balance Tests Love Balance Test Love Balance Test 44/56 Score Love Balance Assessment Evaluation Sitting to Standing Independent w/out Hands Ability Unsupported Stance Safely- 2 minutes Sitting Unsupported, Safely- 2 minutes Feet on Floor Standing to Sitting Safely, Minimal Hand Use Ability Transfer Ability Safely, Minimal Hand Use Unsupported Stance- Supervision, 10 seconds Eyes Closed Unsupported Stance- Independent, 1 minute Eyes Open Reaching Forward Confidently, 10 inches Standing Pick- Up Object From Independent/Safe Floor Look Behind Shoulder Shifts Weight Well - Standing Turning 360 Degrees Turns slowly, but safely Unsupported Stance, Assist to Prevent Fall Alternating Feet on Stair Unsupported Tandem Small Step- 30 seconds Stance Unilateral Leg Lifts Leg/Unable to Hold Stance Total Score Love Total Score ( 44 out of 56 points) Love Impairment 20 to 39% Impaired (Score 34-44) Rating PT-OP-E Functional Tests Start: 12/23/24 13:52 Freq: Status: Active Protocol: Document 12/23/24 10:45 DCW (Rec: 12/23/24 14:06 DC [id number]) Functional Tests Dynamic Gait Index (DGI) Score 18/24 DGI Impairment 20 to <40% Impaired (Score 15-19) Rating Functional Gait Assessment Score 19/30 Functional Gait 20 to <40% Impaired (Score 19-24) Assessment Impairment Rating PT-OP-M Strength Start: 12/23/24 13:52 Freq: Status: Active Protocol: Document 12/23/24 10:45 DCW (Rec: 12/23/24 14:06 DC [id number]) Hip Strength Hip Manual Muscle Testing Right Flexion (L2) 3+ Fair+ Extension (S1) 3+ Fair+ Abduction 4- Good- Adduction 4 Good External Rotation 4 Good Internal Rotation 4- Good- Left Flexion (L2) 3+ Fair+ Extension (S1) 3+ Fair+ Abduction 4- Good- Adduction 4 Good External Rotation 4 Good Internal Rotation 4- Good- Knee Strength Knee Manual Muscle Testing Right Flexion (S2) 5 Normal Extension (L3) 5 Normal Left Flexion (S2) 5 Normal Extension (L3) 5 Normal Ankle/Foot Strength Ankle and Foot Manual Muscle Testing Right Dorsiflexion (L4) 5 Normal Plantarflexion (S1) 3+ Fair+ Left Dorsiflexion (L4) 4+ Good+ Plantarflexion (S1) 4 Good PT-OP-Q Treatments Start: 12/23/24 13:52 Freq: Status: Active Protocol: Document 12/30/24 16:16 LFG (Rec: 12/30/24 17:22 LFG [id number]) Cardio Equipment Recumbent Stepper (Sci-Fit) Duration (Minutes) 6 Resistance 5 Seat Position 9 Other [employer] Equipment Shuttle Recovery Unilateral Details cues to drive through the R heel, slow ecc Resistance #50 Shuttle Recovery Stable Platform Reps/Time ~15-20x Bilateral Details cues to slow eccentric, keep LE aligned, prevent knee cave Resistance #62 Shuttle Recovery Stable Platform Reps/Time ~15-20x Therapeutic Exercises Standing Exercises Sit/Stand Standing Exercise Sit to stand - introduction/attempt Name Equipment Used Chair, mirror, tb Comments cues to avoid knees from caving in Neuro Re-Education Treatment Balance Activities Hurdles Details Hurdles - fwd/sideways Equipment // bars Reps/Duration x2 Comments SBA, cues for slowing down, keep feet foward SL box taps Details Single leg box taps on foam pad Surface unstable - black foam Equipment // bar, 6 box Reps/Duration 10-15x Comments SBA, cues to tap - not rest foot on box, slow down PT-OP-T Assessment and Plan Start: 12/23/24 13:52 Freq: Status: Active Protocol: Document 12/30/24 16:16 LFG (Rec: 12/30/24 17:22 LFG [id number]) Physical Therapy Assessment Rehab Potential Rehabilitation Good Potential Evaluation Complexity Number of Personal 3 or More Factors/ Comorbidities Number of Body 4 or More Systems Impaired Clinical Unstable Presentation at Evaluation Impairments Impairments Activity Tolerance,Balance,Functional Activities, Functional Mobility,Soft Tissue Mobility,Strength Goals Three Impairment Pt displays bilateral hip weakness, particularly hip flex and ext (3+/5) Movie Producer Goal (LTG) Pt to demonstrate an increase in hip strength to at least 4/5 in all planes in order to help stabilize pelvis during gait to improve functional balance. LTG Duration 02/22/25 Two Impairment Pt exhibits increased falls risk, per Love score (44/56 ) and FGA (19/30) Halfway Goal (LTG) Pt to improve score of the Love Balance Scale by at least 5 points to 49/56 in order to demonstrate decrease in risk of falls. LTG Duration 02/22/25 One Impairment Pt does not have an appropriate home exercise program Short Term Goal (STG Pt to be independent and compliant with an appropriate ) HEP STG Duration 01/22/25 Assessment Summary Assessment HEP was reviewed briefly to ensure proper technique. Pt demonstrated bilateral knee valgus corrections with cues during the leg press but still struggled to correct/control the knees bilaterally during sit to stands. Recommended she add sit to stands to her HEP and focus on controlling the knees. Pt will likely benefit from a continued focus on LE strengthening, static/dynamic balance challenges, gait training, and decreasing her fear of falling. Physical Therapy Plan Frequency and Duration Frequency of 2x/Week Treatment Plan of Care Start 12/23/24 Date Plan of Care End 02/22/25 Date Therapeutic Interventions Therapeutic Balance Training,Gait Training,Home Exercise Program, Interventions Joint Mobilizations,Manual Therapy,Patient/Caregiver Education,Self-Care/Home Management,Soft Tissue Mobilization,Therapeutic Activities,Therapeutic Exercises,Vestibular Rehabilitation Next Visit Focus/Plan Next Note Type Treatment Note Next Visit Plan Review/check in on her HEP Balance training, functional mobility, strengthening
--- NOTE | 2025-01-14 14:28 | PT.OTN ---
Current Diagnoses Other chronic pain (01/14/25) Low back pain, unspecified (01/14/25) Pain in right foot (01/14/25) History of falling (01/14/25) Physical Therapy Treatment Note PT-OP-A Visit Information Start: 12/23/24 13:52 Freq: Status: Active Protocol: Document 01/14/25 13:45 DCW (Rec: 01/14/25 14:28 DCW [id number]) Out-Patient Physical Therapy Visit Information Visit Information Visit Type Treatment Note Visit Start Time 13:45 Visit Stop Time 14:30 Visit Number 4 Number of CORPORATION SECRETARY Visits 0 Evaluation Information Evaluation Date 12/23/24 PT-OP-B Current Condition Start: 12/23/24 13:52 Freq: Status: Active Protocol: Document 12/23/24 10:45 DCW (Rec: 12/23/24 14:06 DCW [id number]) Current Condition History of Current Condition Current Complaints Increased fear of falling, difficulty with walking on uneven surfaces History of Current Pt is an 84 year old female presenting with general Condition complaints of balance and stability deficits. Pt reports she has decreased confidence with uneven surfaces and when out walking her dog. Notes she has had occasional falls, but has not injured herself. Is planning to go on vacation to [facility] in March with her daughter. Walks [place] with her dog. Notes she tries to use trekking poles when on trails. Treatment Goals Patient/Caregiver Improve confidence with her gait/balance Goals PT-OP-C Subjective Start: 12/23/24 13:52 Freq: Status: Active Protocol: Document 01/14/25 13:45 DCW (Rec: 01/14/25 14:28 DCW [id number]) OP-PT Subjective Patient Comments Patient Comments Pt feeling a little better with her HEP, has been somewhat consistent, although admits she could be better with it. PT-OP-D Balance Start: 12/23/24 13:52 Freq: Status: Active Protocol: Document 12/23/24 10:45 DCW (Rec: 12/23/24 14:06 DCW [id number]) Balance Tests Love Balance Test Love Balance Test 44/56 Score Love Balance Assessment Evaluation Sitting to Standing Independent w/out Hands Ability Unsupported Stance Safely- 2 minutes Sitting Unsupported, Safely- 2 minutes Feet on Floor Standing to Sitting Safely, Minimal Hand Use Ability Transfer Ability Safely, Minimal Hand Use Unsupported Stance- Supervision, 10 seconds Eyes Closed Unsupported Stance- Independent, 1 minute Eyes Open Reaching Forward Confidently, 10 inches Standing Pick- Up Object From Independent/Safe Floor Look Behind Shoulder Shifts Weight Well - Standing Turning 360 Degrees Turns slowly, but safely Unsupported Stance, Assist to Prevent Fall Alternating Feet on Stair Unsupported Tandem Small Step- 30 seconds Stance Unilateral Leg Lifts Leg/Unable to Hold Stance Total Score Love Total Score ( 44 out of 56 points) Love Impairment 20 to 39% Impaired (Score 34-44) Rating PT-OP-E Functional Tests Start: 12/23/24 13:52 Freq: Status: Active Protocol: Document 12/23/24 10:45 DCW (Rec: 12/23/24 14:06 DCW [id number]) Functional Tests Dynamic Gait Index (DGI) Score 18/24 DGI Impairment 20 to <40% Impaired (Score 15-19) Rating Functional Gait Assessment Score 19/30 Functional Gait 20 to <40% Impaired (Score 19-24) Assessment Impairment Rating PT-OP-M Strength Start: 12/23/24 13:52 Freq: Status: Active Protocol: Document 12/23/24 10:45 DCW (Rec: 12/23/24 14:06 DCW [id number]) Hip Strength Hip Manual Muscle Testing Right Flexion (L2) 3+ Fair+ Extension (S1) 3+ Fair+ Abduction 4- Good- Adduction 4 Good External Rotation 4 Good Internal Rotation 4- Good- Left Flexion (L2) 3+ Fair+ Extension (S1) 3+ Fair+ Abduction 4- Good- Adduction 4 Good External Rotation 4 Good Internal Rotation 4- Good- Knee Strength Knee Manual Muscle Testing Right Flexion (S2) 5 Normal Extension (L3) 5 Normal Left Flexion (S2) 5 Normal Extension (L3) 5 Normal Ankle/Foot Strength Ankle and Foot Manual Muscle Testing Right Dorsiflexion (L4) 5 Normal Plantarflexion (S1) 3+ Fair+ Left Dorsiflexion (L4) 4+ Good+ Plantarflexion (S1) 4 Good PT-OP-Q Treatments Start: 12/23/24 13:52 Freq: Status: Active Protocol: Document 01/14/25 13:45 DCW (Rec: 01/14/25 14:28 DCW [id number]) Gym Equipment Shuttle Recovery Unilateral Details cues to drive through the R heel, slow ecc Resistance #50 Shuttle Recovery Stable Platform Bilateral Details cues to slow eccentric, keep LE aligned, prevent knee cave Resistance #75 Shuttle Recovery Stable Platform Therapeutic Exercises Sitting Exercises Ankle Flexion Sitting Exercise 4-way ankle flexion Name Side bilateral Resistance Lv 2 PT-OP-T Assessment and Plan Start: 12/23/24 13:52 Freq: Status: Active Protocol: Document 01/14/25 13:45 DCW (Rec: 01/14/25 14:28 DCW [id number]) Physical Therapy Assessment Impairments Impairments Activity Tolerance,Balance,Functional Activities, Functional Mobility,Soft Tissue Mobility,Strength Goals Three Impairment Pt displays bilateral hip weakness, particularly hip flex and ext (3+/5) Tricot Knitting Machine Operator Goal (LTG) Pt to demonstrate an increase in hip strength to at least 4/5 in all planes in order to help stabilize pelvis during gait to improve functional balance. LTG Duration 02/22/25 Two Impairment Pt exhibits increased falls risk, per Love score (44/56 ) and FGA (19/30) Tricot Knitting Machine Operator Goal (LTG) Pt to improve score of the Love Balance Scale by at least 5 points to 49/56 in order to demonstrate decrease in risk of falls. LTG Duration 02/22/25 One Impairment Pt does not have an appropriate home exercise program Short Term Goal (STG Pt to be independent and compliant with an appropriate ) HEP STG Duration 01/22/25 Assessment Summary Assessment Added 4-way ankle flexion to HEP, pt provided with handout. Pt feeling better about activities, improving confidence in balance. Continue working on LE strength and balance. Physical Therapy Plan Frequency and Duration Frequency of 2x/Week Treatment Plan of Care Start 12/23/24 Date Plan of Care End 02/22/25 Date Therapeutic Interventions Therapeutic Balance Training,Gait Training,Home Exercise Program, Interventions Joint Mobilizations,Manual Therapy,Patient/Caregiver Education,Self-Care/Home Management,Soft Tissue Mobilization,Therapeutic Activities,Therapeutic Exercises,Vestibular Rehabilitation Next Visit Focus/Plan Next Note Type Treatment Note Next Visit Plan Review/check in on her HEP Balance training, functional mobility, strengthening
--- NOTE | 2025-01-19 17:18 | PT.OTN ---
Addendum entered and electronically signed by Jass Miranda, PT 01/19/25 17:25: PT direct supervision and direction to student PT Sammy Linda throughout session Original Note: Current Diagnoses Other chronic pain (01/19/25) Low back pain, unspecified (01/19/25) Pain in right foot (01/19/25) History of falling (01/19/25) Physical Therapy Treatment Note PT-OP-A Visit Information Start: 12/23/24 13:52 Freq: Status: Active Protocol: Document 01/19/25 11:30 LFG (Rec: 01/19/25 12:15 LFG [id number]) Out-Patient Physical Therapy Visit Information Visit Information Visit Type Treatment Note Visit Start Time 11:30 Visit Stop Time 12:09 Visit Number 5 Number of INSIDE UPHOLSTERER Visits 0 Evaluation Information Evaluation Date 12/23/24 PT-OP-B Current Condition Start: 12/23/24 13:52 Freq: Status: Active Protocol: Document 12/23/24 10:45 DCW (Rec: 12/23/24 14:06 DCW [id number]) Current Condition History of Current Condition Current Complaints Increased fear of falling, difficulty with walking on uneven surfaces History of Current Pt is an 84 year old female presenting with general Condition complaints of balance and stability deficits. Pt reports she has decreased confidence with uneven surfaces and when out walking her dog. Notes she has had occasional falls, but has not injured herself. Is planning to go on vacation to [facility] in March with her daughter. Walks [place] with her dog. Notes she tries to use trekking poles when on trails. Treatment Goals Patient/Caregiver Improve confidence with her gait/balance Goals PT-OP-C Subjective Start: 12/23/24 13:52 Freq: Status: Active Protocol: Document 01/19/25 11:30 LFG (Rec: 01/19/25 12:15 LFG [id number]) OP-PT Subjective Patient Comments Patient Comments Walked dogs and did water aerobics this morning. States that she has been busy in general so she has not been able to do her HEP as much as she should. PT-OP-D Balance Start: 12/23/24 13:52 Freq: Status: Active Protocol: Document 12/23/24 10:45 DCW (Rec: 12/23/24 14:06 DCW [id number]) Balance Tests Love Balance Test Love Balance Test 44/56 Score Love Balance Assessment Evaluation Sitting to Standing Independent w/out Hands Ability Unsupported Stance Safely- 2 minutes Sitting Unsupported, Safely- 2 minutes Feet on Floor Standing to Sitting Safely, Minimal Hand Use Ability Transfer Ability Safely, Minimal Hand Use Unsupported Stance- Supervision, 10 seconds Eyes Closed Unsupported Stance- Independent, 1 minute Eyes Open Reaching Forward Confidently, 10 inches Standing Pick- Up Object From Independent/Safe Floor Look Behind Shoulder Shifts Weight Well - Standing Turning 360 Degrees Turns slowly, but safely Unsupported Stance, Assist to Prevent Fall Alternating Feet on Stair Unsupported Tandem Small Step- 30 seconds Stance Unilateral Leg Lifts Leg/Unable to Hold Stance Total Score Love Total Score ( 44 out of 56 points) Love Impairment 20 to 39% Impaired (Score 34-44) Rating PT-OP-E Functional Tests Start: 12/23/24 13:52 Freq: Status: Active Protocol: Document 12/23/24 10:45 DCW (Rec: 12/23/24 14:06 [facility] [id number]) Functional Tests Dynamic Gait Index (DGI) Score 18/24 DGI Impairment 20 to <40% Impaired (Score 15-19) Rating Functional Gait Assessment Score 19/30 Functional Gait 20 to <40% Impaired (Score 19-24) Assessment Impairment Rating PT-OP-M Strength Start: 12/23/24 13:52 Freq: Status: Active Protocol: Document 12/23/24 10:45 DCW (Rec: 12/23/24 14:06 [facility] [id number]) Hip Strength Hip Manual Muscle Testing Right Flexion (L2) 3+ Fair+ Extension (S1) 3+ Fair+ Abduction 4- Good- Adduction 4 Good External Rotation 4 Good Internal Rotation 4- Good- Left Flexion (L2) 3+ Fair+ Extension (S1) 3+ Fair+ Abduction 4- Good- Adduction 4 Good External Rotation 4 Good Internal Rotation 4- Good- Knee Strength Knee Manual Muscle Testing Right Flexion (S2) 5 Normal Extension (L3) 5 Normal Left Flexion (S2) 5 Normal Extension (L3) 5 Normal Ankle/Foot Strength Ankle and Foot Manual Muscle Testing Right Dorsiflexion (L4) 5 Normal Plantarflexion (S1) 3+ Fair+ Left Dorsiflexion (L4) 4+ Good+ Plantarflexion (S1) 4 Good PT-OP-Q Treatments Start: 12/23/24 13:52 Freq: Status: Active Protocol: Document 01/19/25 11:30 LFG (Rec: 01/19/25 12:15 LFG [id number]) Gym Equipment Shuttle Recovery Unilateral Details cues to drive through heels, L knee felt better Resistance #50 Shuttle Recovery Stable Platform Reps/Time x20 Bilateral Details cues to slow eccentric, keep LE aligned, prevent knee cave Resistance #75 Shuttle Recovery Stable Platform Reps/Time x20 Therapeutic Exercises Sidelying Exercises hip abductions Side bilateral Reps/Minutes x12 Comments cues to keep hips from rolling back reverse clamshells Side bilateral Reps/Minutes x12 clamshells Side bilateral Reps/Minutes x12 Comments cues to keep hips from rolling back, maintain knee bent Standing Exercises Hip extensions Side bilateral Resistance L2 Equipment Used Used railing for support Reps/Minutes ~12-15x Comments cues to squeeze glute, keep moving LE extended Hip abduction Side bilateral Resistance L2 Equipment Used Used railing for support Reps/Minutes ~12-15x Comments cues to keep foot off ground, no leaning Neuro Re-Education Treatment Balance Activities cone taps Details Single leg cone taps Surface AirEx Equipment // bars Reps/Duration x10 Comments occasional use of hands to balance Hurdles Details Hurdles - fwd/sideways Equipment // bars Reps/Duration x2 Comments cues for slowing down, keep feet foward PT-OP-T Assessment and Plan Start: 12/23/24 13:52 Freq: Status: Active Protocol: Document 01/19/25 11:30 LFG (Rec: 01/19/25 12:15 LFG [id number]) Physical Therapy Assessment Rehab Potential Rehabilitation Good Potential Evaluation Complexity Number of Personal 3 or More Factors/ Comorbidities Number of Body 4 or More Systems Impaired Clinical Unstable Presentation at Evaluation Impairments Impairments Activity Tolerance,Balance,Functional Activities, Functional Mobility,Soft Tissue Mobility,Strength Goals Three Impairment Pt displays bilateral hip weakness, particularly hip flex and ext (3+/5) Data Center Operator Goal (LTG) Pt to demonstrate an increase in hip strength to at least 4/5 in all planes in order to help stabilize pelvis during gait to improve functional balance. LTG Duration 02/22/25 Two Impairment Pt exhibits increased falls risk, per Love score (44/56 ) and FGA () Data Center Operator Goal (LTG) Pt to improve score of the Love Balance Scale by at least 5 points to 49/56 in order to demonstrate decrease in risk of falls. LTG Duration 02/22/25 One Impairment Pt does not have an appropriate home exercise program Short Term Goal (STG Pt to be independent and compliant with an appropriate ) HEP STG Duration 01/22/25 Assessment Summary Assessment Patient requested to work on both balance and strengthening today. Good response to todays session. Challenged in balance training, but may be able to progress next visit. No complaints of L knee pain after correcting form/technique. Continue to work on LE strengthening and balance. Physical Therapy Plan Frequency and Duration Frequency of 2x/Week Treatment Plan of Care Start 12/23/24 Date Plan of Care End 02/22/25 Date Therapeutic Interventions Therapeutic Balance Training,Gait Training,Home Exercise Program, Interventions Joint Mobilizations,Manual Therapy,Patient/Caregiver Education,Self-Care/Home Management,Soft Tissue Mobilization,Therapeutic Activities,Therapeutic Exercises,Vestibular Rehabilitation Next Visit Focus/Plan Next Note Type Treatment Note Next Visit Plan Review/check in on her HEP Balance training, functional mobility, strengthening
--- NOTE | 2025-01-21 12:59 | PT.OTN ---
Current Diagnoses Other chronic pain (01/21/25) Low back pain, unspecified (01/21/25) Pain in right foot (01/21/25) History of falling (01/21/25) Physical Therapy Treatment Note PT-OP-A Visit Information Start: 12/23/24 13:52 Freq: Status: Active Protocol: Document 01/21/25 12:15 DCW (Rec: 01/21/25 12:59 DCW [id number]) Out-Patient Physical Therapy Visit Information Visit Information Visit Type Treatment Note Visit Start Time 12:15 Visit Stop Time 13:00 Visit Number 6 Number of BUSINESS SOLUTIONS CONSULTANT Visits 0 Evaluation Information Evaluation Date 12/23/24 PT-OP-B Current Condition Start: 12/23/24 13:52 Freq: Status: Active Protocol: Document 12/23/24 10:45 DCW (Rec: 12/23/24 14:06 DCW [id number]) Current Condition History of Current Condition Current Complaints Increased fear of falling, difficulty with walking on uneven surfaces History of Current Pt is an 84 year old female presenting with general Condition complaints of balance and stability deficits. Pt reports she has decreased confidence with uneven surfaces and when out walking her dog. Notes she has had occasional falls, but has not injured herself. Is planning to go on vacation to [facility] in March with her daughter. Walks [place] with her dog. Notes she tries to use trekking poles when on trails. Treatment Goals Patient/Caregiver Improve confidence with her gait/balance Goals PT-OP-C Subjective Start: 12/23/24 13:52 Freq: Status: Active Protocol: Document 01/21/25 12:15 DCW (Rec: 01/21/25 12:59 DCW [id number]) OP-PT Subjective Patient Comments Patient Comments Pt notes her left knee is hurting after using the leg press, would prefer to skip it from here on out, at least the unilateral PT-OP-D Balance Start: 12/23/24 13:52 Freq: Status: Active Protocol: Document 12/23/24 10:45 DCW (Rec: 12/23/24 14:06 DCW [id number]) Balance Tests Love Balance Test Love Balance Test 44/56 Score Love Balance Assessment Evaluation Sitting to Standing Independent w/out Hands Ability Unsupported Stance Safely- 2 minutes Sitting Unsupported, Safely- 2 minutes Feet on Floor Standing to Sitting Safely, Minimal Hand Use Ability Transfer Ability Safely, Minimal Hand Use Unsupported Stance- Supervision, 10 seconds Eyes Closed Unsupported Stance- Independent, 1 minute Eyes Open Reaching Forward Confidently, 10 inches Standing Pick- Up Object From Independent/Safe Floor Look Behind Shoulder Shifts Weight Well - Standing Turning 360 Degrees Turns slowly, but safely Unsupported Stance, Assist to Prevent Fall Alternating Feet on Stair Unsupported Tandem Small Step- 30 seconds Stance Unilateral Leg Lifts Leg/Unable to Hold Stance Total Score Love Total Score ( 44 out of 56 points) Love Impairment 20 to 39% Impaired (Score 34-44) Rating PT-OP-E Functional Tests Start: 12/23/24 13:52 Freq: Status: Active Protocol: Document 12/23/24 10:45 DCW (Rec: 12/23/24 14:06 DCW [id number]) Functional Tests Dynamic Gait Index (DGI) Score 18/24 DGI Impairment 20 to <40% Impaired (Score 15-19) Rating Functional Gait Assessment Score 19/30 Functional Gait 20 to <40% Impaired (Score 19-24) Assessment Impairment Rating PT-OP-M Strength Start: 12/23/24 13:52 Freq: Status: Active Protocol: Document 12/23/24 10:45 DCW (Rec: 12/23/24 14:06 DCW [id number]) Hip Strength Hip Manual Muscle Testing Right Flexion (L2) 3+ Fair+ Extension (S1) 3+ Fair+ Abduction 4- Good- Adduction 4 Good External Rotation 4 Good Internal Rotation 4- Good- Left Flexion (L2) 3+ Fair+ Extension (S1) 3+ Fair+ Abduction 4- Good- Adduction 4 Good External Rotation 4 Good Internal Rotation 4- Good- Knee Strength Knee Manual Muscle Testing Right Flexion (S2) 5 Normal Extension (L3) 5 Normal Left Flexion (S2) 5 Normal Extension (L3) 5 Normal Ankle/Foot Strength Ankle and Foot Manual Muscle Testing Right Dorsiflexion (L4) 5 Normal Plantarflexion (S1) 3+ Fair+ Left Dorsiflexion (L4) 4+ Good+ Plantarflexion (S1) 4 Good PT-OP-Q Treatments Start: 12/23/24 13:52 Freq: Status: Active Protocol: Document 01/21/25 12:15 DCW (Rec: 01/21/25 12:59 DCW [id number]) Cardio Equipment Recumbent Stepper (Sci-Fit) Duration (Minutes) 6 Resistance 2 Seat Position Seat 8, arms 7 Other Nustep Therapeutic Exercises Supine Exercises SAQ Supine Exercise Name SAQ Side bilateral Resistance 5# Bridging Supine Exercise Name Bridging /c adductor ball squeeze Sitting Exercises LAQ Sitting Exercise LAQ Name Side bilateral Resistance 5# Standing Exercises Toe-taps Standing Exercise Toe-taps Name Side bilateral Resistance 5# Equipment Used 6 step Neuro Re-Education Treatment Balance Activities SLS Details SLS cone taps Details Single leg cone taps Surface AirEx Equipment // bars Reps/Duration x10 Comments occasional use of hands to balance Hurdles Details Hurdles/foam Equipment // bars Comments Forward, Tandem, Side-stepping PT-OP-T Assessment and Plan Start: 12/23/24 13:52 Freq: Status: Active Protocol: Document 01/21/25 12:15 DCW (Rec: 01/21/25 12:59 DCW [id number]) Physical Therapy Assessment Impairments Impairments Activity Tolerance,Balance,Functional Activities, Functional Mobility,Soft Tissue Mobility,Strength Goals Three Impairment Pt displays bilateral hip weakness, particularly hip flex and ext (3+/5) Child Center Assistant Goal (LTG) Pt to demonstrate an increase in hip strength to at least 4/5 in all planes in order to help stabilize pelvis during gait to improve functional balance. LTG Duration 02/22/25 Two Impairment Pt exhibits increased falls risk, per Love score (44/56 ) and FGA (19/30) Alf Goal (LTG) Pt to improve score of the Love Balance Scale by at least 5 points to 49/56 in order to demonstrate decrease in risk of falls. LTG Duration 02/22/25 One Impairment Pt does not have an appropriate home exercise program Short Term Goal (STG Pt to be independent and compliant with an appropriate ) HEP STG Duration 01/22/25 Assessment Summary Assessment Good response to treatment today, pt feeling some lingering soreness in left knee, tried to do new exercises today in order to improve knee strength without increasing discomfort. Continue to focus on activity tolerance, strength, and balance. Physical Therapy Plan Frequency and Duration Frequency of 2x/Week Treatment Plan of Care Start 12/23/24 Date Plan of Care End 02/22/25 Date Therapeutic Interventions Therapeutic Balance Training,Gait Training,Home Exercise Program, Interventions Joint Mobilizations,Manual Therapy,Patient/Caregiver Education,Self-Care/Home Management,Soft Tissue Mobilization,Therapeutic Activities,Therapeutic Exercises,Vestibular Rehabilitation Next Visit Focus/Plan Next Note Type Treatment Note Next Visit Plan Review/check in on her HEP Balance training, functional mobility, strengthening
--- NOTE | 2025-01-28 15:44 | PT-OP ANOTE ---
Pt did not show to her 01/28 appointment. Patient was phoned, was very apologetic, admitted she just simply got distracted cleaning and forgot. Pt reminded of her next scheduled visit.
--- NOTE | 2025-02-11 11:30 | PT.OTN ---
Current Diagnoses Other chronic pain (02/11/25) Low back pain, unspecified (02/11/25) Pain in right foot (02/11/25) History of falling (02/11/25) Physical Therapy Treatment Note PT-OP-A Visit Information Start: 12/23/24 13:52 Freq: Status: Active Protocol: Document 02/11/25 10:45 SP (Rec: 02/11/25 11:36 SP [id number]) Out-Patient Physical Therapy Visit Information Visit Information Visit Type Treatment Note Visit Start Time 10:46 Visit Stop Time 11:30 Visit Number 7 Number of MACHINE FOLDER Visits 1 PT-OP-B Current Condition Start: 12/23/24 13:52 Freq: Status: Active Protocol: Document 12/23/24 10:45 DCW (Rec: 12/23/24 14:06 DCW [id number]) Current Condition History of Current Condition Current Complaints Increased fear of falling, difficulty with walking on uneven surfaces History of Current Pt is an 84 year old female presenting with general Condition complaints of balance and stability deficits. Pt reports she has decreased confidence with uneven surfaces and when out walking her dog. Notes she has had occasional falls, but has not injured herself. Is planning to go on vacation to [facility] in March with her daughter. Walks [place] with her dog. Notes she tries to use trekking poles when on trails. Treatment Goals Patient/Caregiver Improve confidence with her gait/balance Goals PT-OP-C Subjective Start: 12/23/24 13:52 Freq: Status: Active Protocol: Document 02/11/25 10:45 SP (Rec: 02/11/25 11:36 SP [id number]) OP-PT Subjective Patient Comments Patient Comments Pt reports thinks the pushing on leg press, lifting up with weight with her leg and band side stepping was to much irritated her L knee so wants to be careful not over do activities today . PT-OP-D Balance Start: 12/23/24 13:52 Freq: Status: Active Protocol: Document 12/23/24 10:45 DCW (Rec: 12/23/24 14:06 DCW [id number]) Balance Tests Love Balance Test Love Balance Test 44/56 Score Love Balance Assessment Evaluation Sitting to Standing Independent w/out Hands Ability Unsupported Stance Safely- 2 minutes Sitting Unsupported, Safely- 2 minutes Feet on Floor Standing to Sitting Safely, Minimal Hand Use Ability Transfer Ability Safely, Minimal Hand Use Unsupported Stance- Supervision, 10 seconds Eyes Closed Unsupported Stance- Independent, 1 minute Eyes Open Reaching Forward Confidently, 10 inches Standing Pick- Up Object From Independent/Safe Floor Look Behind Shoulder Shifts Weight Well - Standing Turning 360 Degrees Turns slowly, but safely Unsupported Stance, Assist to Prevent Fall Alternating Feet on Stair Unsupported Tandem Small Step- 30 seconds Stance Unilateral Leg Lifts Leg/Unable to Hold Stance Total Score Love Total Score ( 44 out of 56 points) Love Impairment 20 to 39% Impaired (Score 34-44) Rating PT-OP-E Functional Tests Start: 12/23/24 13:52 Freq: Status: Active Protocol: Document 12/23/24 10:45 DCW (Rec: 12/23/24 14:06 DCW [id number]) Functional Tests Dynamic Gait Index (DGI) Score 18/24 DGI Impairment 20 to <40% Impaired (Score 15-19) Rating Functional Gait Assessment Score 19/30 Functional Gait 20 to <40% Impaired (Score 19-24) Assessment Impairment Rating PT-OP-M Strength Start: 12/23/24 13:52 Freq: Status: Active Protocol: Document 12/23/24 10:45 DCW (Rec: 12/23/24 14:06 DCW [id number]) Hip Strength Hip Manual Muscle Testing Right Flexion (L2) 3+ Fair+ Extension (S1) 3+ Fair+ Abduction 4- Good- Adduction 4 Good External Rotation 4 Good Internal Rotation 4- Good- Left Flexion (L2) 3+ Fair+ Extension (S1) 3+ Fair+ Abduction 4- Good- Adduction 4 Good External Rotation 4 Good Internal Rotation 4- Good- Knee Strength Knee Manual Muscle Testing Right Flexion (S2) 5 Normal Extension (L3) 5 Normal Left Flexion (S2) 5 Normal Extension (L3) 5 Normal Ankle/Foot Strength Ankle and Foot Manual Muscle Testing Right Dorsiflexion (L4) 5 Normal Plantarflexion (S1) 3+ Fair+ Left Dorsiflexion (L4) 4+ Good+ Plantarflexion (S1) 4 Good PT-OP-Q Treatments Start: 12/23/24 13:52 Freq: Status: Active Protocol: Document 02/11/25 10:45 SP (Rec: 02/11/25 11:36 SP [id number]) Therapeutic Exercises Sidelying Exercises reverse clamshells Sidelying Exercise reviewed HEP and provided HO Name Side bilateral Equipment Used pillow between knees Reps/Minutes 2x10 reps clamshells Sidelying Exercise reviewed HEP and provided HO Name Side bilateral Resistance AROM> TB #1 Equipment Used band below knee on L Reps/Minutes 2x10 reps each resistance Comments good form Sitting Exercises Stretching Sitting Exercise 1. HS 2. piriformis hi IR3.Fig 4 Hip ER- with HO Name Side bilateral Reps/Minutes 60 sec each Comments cued slow gentle stretch, no bouncing- good response LAQ Sitting Exercise LAQ Name Side bilateral Resistance AROM Reps/Minutes 5 SH x10 Manual Therapy Treatment Soft Tissue Mobilization B knee, ankles Body Location quad, HS, calf, ankle mobility PA/med&lat calcaneus Intensity/Depth hooklying Comments R>L- good response Self-Care/Home Management Treatment Education Patient Education Body Mechanics,Home Exercise Program,Joint Protection, Pain Management,Safety Other Education Discussed hold off on resisted side stepping or can position band at thighs if ok and no pain, at ankles might have caused to much pressure in knee as a result. Provided contact info for [facility] [employer] in fall for support community strengthening class at to compliment outside of [facility] classes. PT-OP-T Assessment and Plan Start: 12/23/24 13:52 Freq: Status: Active Protocol: Document 02/11/25 10:45 SP (Rec: 02/11/25 11:36 SP [id number]) Physical Therapy Assessment Goals Three Impairment Pt displays bilateral hip weakness, particularly hip flex and ext (3+/5) Fdc Goal (LTG) Pt to demonstrate an increase in hip strength to at least 4/5 in all planes in order to help stabilize pelvis during gait to improve functional balance. LTG Duration 02/22/25 Two Impairment Pt exhibits increased falls risk, per Love score (44/56 ) and FGA (19/30) Technical Publications Manager Goal (LTG) Pt to improve score of the Love Balance Scale by at least 5 points to 49/56 in order to demonstrate decrease in risk of falls. LTG Duration 02/22/25 One Impairment Pt does not have an appropriate home exercise program Short Term Goal (STG Pt to be independent and compliant with an appropriate ) HEP STG Duration 01/22/25 Assessment Summary Assessment Pt tx focused more on return to supine/SL past HEP for hip and core strengthening and added stretching today post manual. Pt was able to increase resistance of clamshells and knowledge to progress with hip abduction when feels ready. Discussed hold off on resisted side stepping or can position band at thighs if ok and no pain, at ankles might have caused to much pressure in knee as a result. Pt had no pain and only muscle soreness end today with HOs for support set up and recall for carryover home today. Physical Therapy Plan Frequency and Duration Frequency of 2x/Week Treatment Plan of Care Start 12/23/24 Date Plan of Care End 02/22/25 Date Therapeutic Interventions Therapeutic Balance Training,Gait Training,Home Exercise Program, Interventions Joint Mobilizations,Manual Therapy,Patient/Caregiver Education,Self-Care/Home Management,Soft Tissue Mobilization,Therapeutic Activities,Therapeutic Exercises,Vestibular Rehabilitation Next Visit Focus/Plan Next Note Type Treatment Note Next Visit Plan Review/check in on her HEP, progress balance and uneven surfaces. Balance training, functional mobility, strengthening
--- NOTE | 2025-02-15 15:19 | PT.OTN ---
Current Diagnoses Other chronic pain (02/15/25) Low back pain, unspecified (02/15/25) Pain in right foot (02/15/25) History of falling (02/15/25) Physical Therapy Treatment Note PT-OP-A Visit Information Start: 12/23/24 13:52 Freq: Status: Active Protocol: Document 02/15/25 14:35 DCW (Rec: 02/15/25 15:18 DCW [id number]) Out-Patient Physical Therapy Visit Information Visit Information Visit Type Treatment Note Visit Start Time 14:35 Visit Stop Time 15:15 Visit Number 8 Number of MOTOR VEHICLE DISPATCHER Visits 0 Evaluation Information Evaluation Date 12/23/24 PT-OP-B Current Condition Start: 12/23/24 13:52 Freq: Status: Active Protocol: Document 12/23/24 10:45 DCW (Rec: 12/23/24 14:06 DCW [id number]) Current Condition History of Current Condition Current Complaints Increased fear of falling, difficulty with walking on uneven surfaces History of Current Pt is an 84 year old female presenting with general Condition complaints of balance and stability deficits. Pt reports she has decreased confidence with uneven surfaces and when out walking her dog. Notes she has had occasional falls, but has not injured herself. Is planning to go on vacation to [facility] in March with her daughter. Walks [place] with her dog. Notes she tries to use trekking poles when on trails. Treatment Goals Patient/Caregiver Improve confidence with her gait/balance Goals PT-OP-C Subjective Start: 12/23/24 13:52 Freq: Status: Active Protocol: Document 02/15/25 14:35 DCW (Rec: 02/15/25 15:18 DCW [id number]) OP-PT Subjective Patient Comments Patient Comments Pt continues to report desire to avoid activities that may flare-up his knee. PT-OP-D Balance Start: 12/23/24 13:52 Freq: Status: Active Protocol: Document 12/23/24 10:45 DCW (Rec: 12/23/24 14:06 DCW [id number]) Balance Tests Love Balance Test Love Balance Test 44/56 Score Love Balance Assessment Evaluation Sitting to Standing Independent w/out Hands Ability Unsupported Stance Safely- 2 minutes Sitting Unsupported, Safely- 2 minutes Feet on Floor Standing to Sitting Safely, Minimal Hand Use Ability Transfer Ability Safely, Minimal Hand Use Unsupported Stance- Supervision, 10 seconds Eyes Closed Unsupported Stance- Independent, 1 minute Eyes Open Reaching Forward Confidently, 10 inches Standing Pick- Up Object From Independent/Safe Floor Look Behind Shoulder Shifts Weight Well - Standing Turning 360 Degrees Turns slowly, but safely Unsupported Stance, Assist to Prevent Fall Alternating Feet on Stair Unsupported Tandem Small Step- 30 seconds Stance Unilateral Leg Lifts Leg/Unable to Hold Stance Total Score Love Total Score ( 44 out of 56 points) Love Impairment 20 to 39% Impaired (Score 34-44) Rating PT-OP-E Functional Tests Start: 12/23/24 13:52 Freq: Status: Active Protocol: Document 12/23/24 10:45 DCW (Rec: 12/23/24 14:06 DCW [id number]) Functional Tests Dynamic Gait Index (DGI) Score 18/24 DGI Impairment 20 to <40% Impaired (Score 15-19) Rating Functional Gait Assessment Score 19/30 Functional Gait 20 to <40% Impaired (Score 19-24) Assessment Impairment Rating PT-OP-M Strength Start: 12/23/24 13:52 Freq: Status: Active Protocol: Document 12/23/24 10:45 DCW (Rec: 12/23/24 14:06 DCW [id number]) Hip Strength Hip Manual Muscle Testing Right Flexion (L2) 3+ Fair+ Extension (S1) 3+ Fair+ Abduction 4- Good- Adduction 4 Good External Rotation 4 Good Internal Rotation 4- Good- Left Flexion (L2) 3+ Fair+ Extension (S1) 3+ Fair+ Abduction 4- Good- Adduction 4 Good External Rotation 4 Good Internal Rotation 4- Good- Knee Strength Knee Manual Muscle Testing Right Flexion (S2) 5 Normal Extension (L3) 5 Normal Left Flexion (S2) 5 Normal Extension (L3) 5 Normal Ankle/Foot Strength Ankle and Foot Manual Muscle Testing Right Dorsiflexion (L4) 5 Normal Plantarflexion (S1) 3+ Fair+ Left Dorsiflexion (L4) 4+ Good+ Plantarflexion (S1) 4 Good PT-OP-Q Treatments Start: 12/23/24 13:52 Freq: Status: Active Protocol: Document 02/15/25 14:35 DCW (Rec: 02/15/25 15:18 DCW [id number]) Cardio Equipment Recumbent Stepper (Sci-Fit) Duration (Minutes) 6 Resistance 3 Seat Position Seat 8, arms 7 Other [employer] Equipment Shuttle Balance Red Details WBOS Therapeutic Exercises Standing Exercises Calf stretch Standing Exercise Calf stretch on step Name Side bilateral Manual Therapy Treatment Soft Tissue Mobilization B knee, ankles Body Location quad, HS, calf Intensity/Depth hooklying Comments R>L- good response Neuro Re-Education Treatment Balance Activities Foam Details EO/EC Uneven surfaces Details Blue pad over obstacles SLS Details SLS PT-OP-T Assessment and Plan Start: 12/23/24 13:52 Freq: Status: Active Protocol: Document 02/15/25 14:35 DCW (Rec: 02/15/25 15:18 DCW [id number]) Physical Therapy Assessment Impairments Impairments Activity Tolerance,Balance,Functional Activities, Functional Mobility,Soft Tissue Mobility,Strength Goals Three Impairment Pt displays bilateral hip weakness, particularly hip flex and ext (3+/5) Blood Bank Manager Goal (LTG) Pt to demonstrate an increase in hip strength to at least 4/5 in all planes in order to help stabilize pelvis during gait to improve functional balance. LTG Duration 02/22/25 Two Impairment Pt exhibits increased falls risk, per Love score (44/56 ) and FGA (19/30) Senior Care Goal (LTG) Pt to improve score of the Love Balance Scale by at least 5 points to 49/56 in order to demonstrate decrease in risk of falls. LTG Duration 02/22/25 One Impairment Pt does not have an appropriate home exercise program Short Term Goal (STG Pt to be independent and compliant with an appropriate ) HEP STG Duration 01/22/25 Assessment Summary Assessment Pt tolerated treatment well, tried to take it easy to limit knee discomfort. Recommended pt add calf stretch to HEP. Pt leaving for out of country trip in one month , hoping to feel more [place] and improved activity tolerance by then. Physical Therapy Plan Frequency and Duration Frequency of 2x/Week Treatment Plan of Care Start 12/23/24 Date Plan of Care End 02/22/25 Date Therapeutic Interventions Therapeutic Balance Training,Gait Training,Home Exercise Program, Interventions Joint Mobilizations,Manual Therapy,Patient/Caregiver Education,Self-Care/Home Management,Soft Tissue Mobilization,Therapeutic Activities,Therapeutic Exercises,Vestibular Rehabilitation Next Visit Focus/Plan Next Note Type Treatment Note Next Visit Plan Review/check in on her HEP, progress balance and uneven surfaces. Balance training, functional mobility, strengthening
--- NOTE | 2025-02-15 15:19 | PT.OPPOC ---
Physical, Occupational & Speech Therapy At [facility] Current Diagnoses Other chronic pain (02/24/25) Low back pain, unspecified (02/24/25) Pain in right foot (02/24/25) History of falling (02/24/25) Visit Care Team Role Provider Type Julius Sandoval DO Attending Provider Physician Family Provider Primary Care Provider Referring Provider Specialty: Family Practice Address: [address] [place] [address], [facility] Email: Plan Of Care PT-OP-A Visit Information Start: 02/24/25 17:00 Freq: Status: Active Protocol: Document 02/24/25 17:01 DCW (Rec: 02/24/25 17:08 DCW [id number]) Out-Patient Physical Therapy Visit Information Visit Information Visit Type Progress Note Visit Start Time 14:35 Visit Stop Time 15:15 Visit Number 8 Number of SUPERVISOR MICROBIOLOGY TECHNOLOGISTS Visits 0 Evaluation Information Evaluation Date 12/23/24 PT-OP-B Current Condition Start: 02/24/25 17:00 Freq: Status: Active Protocol: Document 02/24/25 17:01 DCW (Rec: 02/24/25 17:08 DCW [id number]) Current Condition History of Current Condition Current Complaints Increased fear of falling, difficulty with walking on uneven surfaces History of Current Pt is an 84 year old female presenting with general Condition complaints of balance and stability deficits. Pt reports she has decreased confidence with uneven surfaces and when out walking her dog. Notes she has had occasional falls, but has not injured herself. Is planning to go on vacation to [facility] [place] in March with her daughter. Walks [place] with her dog. Notes she tries to use trekking poles when on trails. PT-OP-C Subjective Start: 02/24/25 17:00 Freq: Status: Active Protocol: Document 02/24/25 17:01 DCW (Rec: 02/24/25 17:08 DCW [id number]) OP-PT Subjective Patient Comments Patient Comments Pt continues to report desire to avoid activities that may flare-up her knee. PT-OP-Q Treatments Start: 02/24/25 17:00 Freq: Status: Active Protocol: Document 02/24/25 17:01 DCW (Rec: 02/24/25 17:08 [facility] [id number]) Cardio Equipment Recumbent Stepper (Sci-Fit) Duration (Minutes) 6 Resistance 3 Seat Position Seat 8, arms 7 Other [employer] Equipment Shuttle Balance Red Details WBOS Therapeutic Exercises Standing Exercises Calf stretch Standing Exercise Calf stretch on step Name Side bilateral Manual Therapy Treatment Soft Tissue Mobilization B knee, ankles Body Location quad, HS, calf Intensity/Depth hooklying Comments R>L- good response Neuro Re-Education Treatment Balance Activities Foam Details EO/EC Uneven surfaces Details Blue pad over obstacles SLS Details SLS SL box taps Details Single leg box taps on foam pad Surface unstable - black foam Equipment // bar, 6 box Reps/Duration 10-15x Comments SBA, cues to tap - not rest foot on box, slow down PT-OP-T Assessment and Plan Start: 02/24/25 17:00 Freq: Status: Active Protocol: Document 02/24/25 17:01 [facility] (Rec: 02/24/25 17:08 [facility] [id number]) Physical Therapy Assessment Rehab Potential Rehabilitation Good Potential Evaluation Complexity Number of Personal 3 or More Factors/ Comorbidities Number of Body 4 or More Systems Impaired Clinical Unstable Presentation at Evaluation Impairments Impairments Activity Tolerance,Balance,Functional Activities, Functional Mobility,Soft Tissue Mobility,Strength Goals Three Impairment Pt displays bilateral hip weakness, particularly hip flex and ext (3+/5) Retirement Goal (LTG) Pt to demonstrate an increase in hip strength to at least 4/5 in all planes in order to help stabilize pelvis during gait to improve functional balance. LTG Duration 02/22/25 Two Impairment Pt exhibits increased falls risk, per Love score (44/56 ) and FGA (19/30) Retirement Goal (LTG) Pt to improve score of the Love Balance Scale by at least 5 points to 49/56 in order to demonstrate decrease in risk of falls. LTG Duration 02/22/25 One Impairment Pt does not have an appropriate home exercise program Short Term Goal (STG Pt to be independent and compliant with an appropriate ) HEP STG Duration 01/22/25 Assessment Summary Assessment Pt tolerated treatment well, tried to take it easy to limit knee discomfort. Recommended pt add calf stretch to HEP. Pt leaving for out of country trip in one month , hoping to feel more [place] and improved activity tolerance by then. Physical Therapy Plan Frequency and Duration Frequency of 2x/Week Treatment Plan of Care Start 02/15/25 Plan of Care End 04/17/25 Date Therapeutic Interventions Therapeutic Balance Training,Gait Training,Home Exercise Program, Interventions Joint Mobilizations,Manual Therapy,Patient/Caregiver Education,Self-Care/Home Management,Soft Tissue Mobilization,Therapeutic Activities,Therapeutic Exercises,Vestibular Rehabilitation Next Visit Focus/Plan Next Note Type Treatment Note Next Visit Plan Review/check in on her HEP, progress balance and uneven surfaces. Balance training, functional mobility, strengthening Plan of Care Dates Plan of Care Start Date 02/15/25 Plan of Care End Date 04/17/25 Electronically Signed by: Jass Miranda, PT 02/24/25 [id number] If you are in agreement with this Plan of Care, please return a signed and dated copy. I have reviewed this Plan of Care and certify that the skilled therapy services above are required to meet the patient?s needs. Physician Signature Date Printed Name and Credentials Clinical Instructor Signature Printed Name and Credentials
--- NOTE | 2025-02-17 14:31 | PT.OTN ---
Addendum entered and electronically signed by Susie Kaur, TIM 02/26/25 16:24: Update POC Dates from addendum at PT's last Progress Note: POC 02/15/2025 to 04/17/2025. Original Note: Current Diagnoses Other chronic pain (02/17/25) Low back pain, unspecified (02/17/25) Pain in right foot (02/17/25) History of falling (02/17/25) Physical Therapy Treatment Note PT-OP-A Visit Information Start: 12/23/24 13:52 Freq: Status: Active Protocol: Document 02/17/25 13:53 SP (Rec: 02/17/25 14:31 SP [id number]) Out-Patient Physical Therapy Visit Information Visit Information Visit Type Treatment Note Visit Start Time 13:51 Visit Stop Time 14:31 Visit Number 9 Number of PHOTO MASK CLEANER Visits 1 Progress Note Due 01/22/25 PT-OP-B Current Condition Start: 12/23/24 13:52 Freq: Status: Active Protocol: Document 12/23/24 10:45 DCW (Rec: 12/23/24 14:06 DCW [id number]) Current Condition History of Current Condition Current Complaints Increased fear of falling, difficulty with walking on uneven surfaces History of Current Pt is an 84 year old female presenting with general Condition complaints of balance and stability deficits. Pt reports she has decreased confidence with uneven surfaces and when out walking her dog. Notes she has had occasional falls, but has not injured herself. Is planning to go on vacation to [facility] in March with her daughter. Walks [place] with her dog. Notes she tries to use trekking poles when on trails. Treatment Goals Patient/Caregiver Improve confidence with her gait/balance Goals PT-OP-C Subjective Start: 12/23/24 13:52 Freq: Status: Active Protocol: Document 02/17/25 13:53 SP (Rec: 02/17/25 14:31 SP [id number]) OP-PT Subjective Patient Comments Patient Comments Pt report her L knee was irritated when performs resisted side stepping only but is ok f/b (band at ankles), so doesn't add resistance to side stepping. PT-OP-D Balance Start: 12/23/24 13:52 Freq: Status: Active Protocol: Document 12/23/24 10:45 DCW (Rec: 12/23/24 14:06 DCW [id number]) Balance Tests Love Balance Test Love Balance Test 44/56 Score Love Balance Assessment Evaluation Sitting to Standing Independent w/out Hands Ability Unsupported Stance Safely- 2 minutes Sitting Unsupported, Safely- 2 minutes Feet on Floor Standing to Sitting Safely, Minimal Hand Use Ability Transfer Ability Safely, Minimal Hand Use Unsupported Stance- Supervision, 10 seconds Eyes Closed Unsupported Stance- Independent, 1 minute Eyes Open Reaching Forward Confidently, 10 inches Standing Pick- Up Object From Independent/Safe Floor Look Behind Shoulder Shifts Weight Well - Standing Turning 360 Degrees Turns slowly, but safely Unsupported Stance, Assist to Prevent Fall Alternating Feet on Stair Unsupported Tandem Small Step- 30 seconds Stance Unilateral Leg Lifts Leg/Unable to Hold Stance Total Score Love Total Score ( 44 out of 56 points) Love Impairment 20 to 39% Impaired (Score 34-44) Rating PT-OP-E Functional Tests Start: 12/23/24 13:52 Freq: Status: Active Protocol: Document 12/23/24 10:45 DCW (Rec: 12/23/24 14:06 DC [id number]) Functional Tests Dynamic Gait Index (DGI) Score 18/24 DGI Impairment 20 to <40% Impaired (Score 15-19) Rating Functional Gait Assessment Score 19/30 Functional Gait 20 to <40% Impaired (Score 19-24) Assessment Impairment Rating PT-OP-M Strength Start: 12/23/24 13:52 Freq: Status: Active Protocol: Document 12/23/24 10:45 DCW (Rec: 12/23/24 14:06 DC [id number]) Hip Strength Hip Manual Muscle Testing Right Flexion (L2) 3+ Fair+ Extension (S1) 3+ Fair+ Abduction 4- Good- Adduction 4 Good External Rotation 4 Good Internal Rotation 4- Good- Left Flexion (L2) 3+ Fair+ Extension (S1) 3+ Fair+ Abduction 4- Good- Adduction 4 Good External Rotation 4 Good Internal Rotation 4- Good- Knee Strength Knee Manual Muscle Testing Right Flexion (S2) 5 Normal Extension (L3) 5 Normal Left Flexion (S2) 5 Normal Extension (L3) 5 Normal Ankle/Foot Strength Ankle and Foot Manual Muscle Testing Right Dorsiflexion (L4) 5 Normal Plantarflexion (S1) 3+ Fair+ Left Dorsiflexion (L4) 4+ Good+ Plantarflexion (S1) 4 Good PT-OP-Q Treatments Start: 12/23/24 13:52 Freq: Status: Active Protocol: Document 02/17/25 13:53 SP (Rec: 02/17/25 14:31 SP [id number]) Gym Equipment Shuttle Recovery Bilateral Details cued even knee with forefoot Resistance #50 (2 navy bands) Shuttle Recovery Stable Platform Reps/Time x15 Therapeutic Exercises Standing Exercises Calf stretch Standing Exercise Calf stretch on step Name Side bilateral Equipment Used rail support Reps/Minutes 60 sec Comments good ankle ROM and upper calf stretch Fwd/bwd walking Standing Exercise fwd/bwd walking Name Side bilateral Resistance L2 Reps/Minutes 2xlaps Comments SBA, cues for keeping L foot straight Sideways walking Standing Exercise Sideways walking Name Side bilateral Resistance L2- at ankles Reps/Minutes 2xlaps Comments cues tall over stance, TA, slow soft stepping which help with foot clearanc Gait Training Gait Activity dynamic stepping Comments 86 bpm metronome HTs0 off balance lateral toward HT Cues rhomoid, TA adn midline Self-Care/Home Management Treatment Education Patient Education Body Mechanics,Fall Risk,Home Exercise Program,Posture, Safety Other Education Much education today of anatomy and how core, hip strengthening and postural awareness over MARYLOU carryover for balance and stability throughout tx and carry over into community. PT-OP-T Assessment and Plan Start: 12/23/24 13:52 Freq: Status: Active Protocol: Document 02/17/25 13:53 SP (Rec: 02/17/25 14:31 SP [id number]) Physical Therapy Assessment Goals Three Impairment Pt displays bilateral hip weakness, particularly hip flex and ext (3+/5) Half-Way Goal (LTG) Pt to demonstrate an increase in hip strength to at least 4/5 in all planes in order to help stabilize pelvis during gait to improve functional balance. LTG Duration 02/22/25 Two Impairment Pt exhibits increased falls risk, per Love score (44/56 ) and FGA (19/30) Edge Inker Goal (LTG) Pt to improve score of the Love Balance Scale by at least 5 points to 49/56 in order to demonstrate decrease in risk of falls. LTG Duration 02/22/25 One Impairment Pt does not have an appropriate home exercise program Short Term Goal (STG Pt to be independent and compliant with an appropriate ) HEP STG Duration 01/22/25 Assessment Summary Assessment Pt responded well to modification of resistance band positioning at thighs vs ankles during resisted stepping today, eliminated L knee pain but still allowed muscle tiring for strength progression. Pt was challenged with balance during initiated dynamic gait visual scanning today, cues for core and rhomboid engagement with postural awareness midline over wider MARYLOU during head turns and during resisted stepping. Educatoin provided for slower pace with foot eccentric control and COG over stance LE improved stability for safety carryover into gait visual scanning in the parkinglot and trail walking. Physical Therapy Plan Frequency and Duration Frequency of 2x/Week Treatment Plan of Care Start 12/23/24 Date Plan of Care End 02/22/25 Date Therapeutic Interventions Therapeutic Balance Training,Gait Training,Home Exercise Program, Interventions Joint Mobilizations,Manual Therapy,Patient/Caregiver Education,Self-Care/Home Management,Soft Tissue Mobilization,Therapeutic Activities,Therapeutic Exercises,Vestibular Rehabilitation Next Visit Focus/Plan Next Note Type Progress Note Next Visit Plan PN next tx. Review/check in on her HEP, progress balance and uneven surfaces. Balance training, functional mobility, strengthening
--- NOTE | 2025-02-24 14:31 | PT.OTN ---
Current Diagnoses Other chronic pain (02/24/25) Low back pain, unspecified (02/24/25) Pain in right foot (02/24/25) History of falling (02/24/25) Physical Therapy Treatment Note PT OP: Lower Back/Lower Extremity Start: 02/24/25 13:01 Freq: Status: Active Protocol: Document 02/24/25 13:01 SP (Rec: 02/24/25 14:13 SP [id number]) Out-Patient Physical Therapy Visit Information Visit Information Visit Type Treatment Note Visit Start Time 13:51 Visit Stop Time 14:31 Visit Number 9 Number of DIRECTOR OF MATERIALS Visits 1 Progress Note Due 01/22/25 OP-PT Subjective Patient Comments Patient Comments Pt reports knee sore next day after last tx need to DC use of shuttle recovery. She is attending [facility] instructor . Still quality of sleep isn't as good with CPAP (nose/ mouth vs nose only and cord mgt while sleeping) as could be and doctor thinks she has decreased SaO2 and why not sleeping well. She reports the CPAP is being pulled off to side at times not giving good seal. Cardio Equipment Recumbent Elliptical (NuStep) Duration (Minutes) 8 Resistance 3 Seat Position 7, handles 8.5 Other BUEs/BLEs 66 spm Gym Equipment Shuttle Recovery Unilateral Details 02/24/25 DC- bothered next day as previous tx. Bilateral Details 02/24/25 DC- bothered next day as previous tx. Therapeutic Exercises Sitting Exercises LAQ Sitting Exercise LAQ Name Side bilateral Resistance 4# leg wt Reps/Minutes 20 reps alternating Comments good form no pain Neuro Re-Education Treatment Balance Activities Dynamic Mobility Details HTs fwd Comments 86>95 bpm metronome Cues LT and light TA even over pelvis over midline BLEs (MARYLOU) improved midline correction stability, DF or heel strike great foot clearance consistancy. cone taps Details 1. Single leg cone taps on airex 2. step taps 3. step fwd, bwd, lateral Surface AirEx on floor and on top 6 step, 4# leg wt Equipment // bars PRN Reps/Duration x10 Comments occasional postural alignment corrections (TA, scap complex over MARYLOU). with slow eccentric pacing. Physical Therapy Assessment Goals Three Impairment Pt displays bilateral hip weakness, particularly hip flex and ext (3+/5) [facility] Goal (LTG) Pt to demonstrate an increase in hip strength to at least 4/5 in all planes in order to help stabilize pelvis during gait to improve functional balance. LTG Duration 02/22/25 Two Impairment Pt exhibits increased falls risk, per Love score (44/56 ) and FGA (19/30) [facility] Goal (LTG) Pt to improve score of the Love Balance Scale by at least 5 points to 49/56 in order to demonstrate decrease in risk of falls. LTG Duration 02/22/25 One Impairment Pt does not have an appropriate home exercise program Short Term Goal (STG Pt to be independent and compliant with an appropriate ) HEP STG Duration 01/22/25 Assessment Summary Assessment Pt improved midline postural corrections with cuing and able to increase pacing with HTs today and foot clearanced, after weighted balance activities. Pt making gains and self corrections for carryover community gait safety. Physical Therapy Plan Frequency and Duration Frequency of 2x/Week Treatment Plan of Care Start 02/15/25 Date Plan of Care End 04/17/25 Date Therapeutic Interventions Therapeutic Balance Training,Gait Training,Home Exercise Program, Interventions Joint Mobilizations,Manual Therapy,Patient/Caregiver Education,Self-Care/Home Management,Soft Tissue Mobilization,Therapeutic Activities,Therapeutic Exercises,Vestibular Rehabilitation Next Visit Focus/Plan Next Note Type Progress Note Next Visit Plan PN next tx. Review/check in on her HEP, progress balance and uneven surfaces. Balance training, functional mobility, strengthening
--- NOTE | 2025-03-01 09:45 | PT.OTN ---
Current Diagnoses Other chronic pain (03/01/25) Low back pain, unspecified (03/01/25) Pain in right foot (03/01/25) History of falling (03/01/25) Physical Therapy Treatment Note PT OP: Lower Back/Lower Extremity Start: 02/24/25 13:01 Freq: Status: Active Protocol: Document 03/01/25 09:05 SP (Rec: 03/01/25 09:47 SP [id number]) Out-Patient Physical Therapy Visit Information Visit Information Visit Type Treatment Note Visit Start Time 09:05 Visit Stop Time 09:45 Visit Number 10 Number of BELT CHANGER Visits 2 Progress Note Due 03/17/25 OP-PT Subjective Patient Comments Patient Comments Pt reports improving heel and toe clearnace walking but still little off balance walking. Cardio Equipment Recumbent Elliptical (NuStep) Duration (Minutes) 9 Resistance 3 Seat Position 7, handles 8.5 Other BUEs/BLEs 76 spm. 0.39 miles Therapeutic Exercises Supine Exercises Bridging Supine Exercise Name verbal review keep up with for glut strenghtening Sidelying Exercises hip abductions Sidelying Exercise verbal review keep up with for glut and hip abd Name strenghtening reverse clamshells Sidelying Exercise verbal review keep up with for glut and hip abd Name strenghtening clamshells Sidelying Exercise verbal review keep up with for glut and hip abd Name strenghtening Standing Exercises Fwd/bwd walking Standing Exercise verbal review keep up with for glut and hip abd Name strenghtening Sideways walking Standing Exercise verbal review keep up with for glut and hip abd Name strenghtening Hip extensions Standing Exercise verbal review keep up with for glut and hip abd Name strenghtening Hip abduction Standing Exercise verbal review keep up with for glut and hip abd Name strenghtening Gait Training Gait Activity dynamic stepping Comments around clinic 100>98 BPM metronome, cued heel clearance Neuro Re-Education Treatment Balance Activities Dynamic Mobility Details HTs fwd, bkwd, tandem fwd & bwd no Hts Comments Fwd: 98> 95 bpm metronome Cues LT and light TA even over pelvis over midline BLEs (MARYLOU) improved midline correction stability, DF or heel strike great foot clearance consistancy SLS Details SLS- ed to continue home hands hover chair Equipment inside //bars for safety Reps/Duration 23 on L , up to 6 sec on R (more challenge) Comments cues tall posture, TA, trunk over pelvis over ball to heel and med/lat foot/ankle stability. Self-Care/Home Management Treatment Education Patient Education Body Mechanics,Fall Risk,Home Exercise Program,Posture, Safety Other Education Extra time education regarding postural awareness COG over MARYLOU, rhomboid engagement, TA draw in needed, trunk over pelvis over between BLEs for midline stability and DF heel clearance. Physical Therapy Assessment Goals Three Impairment Pt displays bilateral hip weakness, particularly hip flex and ext (3+/5) Thermal Spray Operator Goal (LTG) Pt to demonstrate an increase in hip strength to at least 4/5 in all planes in order to help stabilize pelvis during gait to improve functional balance. LTG Duration 02/22/25 Two Impairment Pt exhibits increased falls risk, per Love score (44/56 ) and FGA () Thermal Spray Operator Goal (LTG) Pt to improve score of the Love Balance Scale by at least 5 points to 49/56 in order to demonstrate decrease in risk of falls. LTG Duration 02/22/25 One Impairment Pt does not have an appropriate home exercise program Short Term Goal (STG Pt to be independent and compliant with an appropriate ) HEP STG Duration 01/22/25 Assessment Summary Assessment Education verbal review of strengthening HEP helps support balance, tx focused on balance. Pt improved midline stability and more posturally aware with education cues 98bpm use metronome forward only around clinic. Progressed dyanmic stepping shorter distance in hallway challenge improved more self corrections trunk over MARYLOU cues softer stepping improved core, hip, rhomboid engagment. Physical Therapy Plan Frequency and Duration Frequency of 2x/Week Treatment Plan of Care Start 02/15/25 Date Plan of Care End 04/17/25 Date Therapeutic Interventions Therapeutic Balance Training,Gait Training,Home Exercise Program, Interventions Joint Mobilizations,Manual Therapy,Patient/Caregiver Education,Self-Care/Home Management,Soft Tissue Mobilization,Therapeutic Activities,Therapeutic Exercises,Vestibular Rehabilitation Next Visit Focus/Plan Next Note Type Treatment Note Next Visit Plan Review/check in on her HEP, progress balance and add uneven surfaces for return to trail walking. Balance training, functional mobility, strengthening
--- NOTE | 2025-03-03 15:23 | PT.OTN ---
Current Diagnoses Other chronic pain (03/03/25) Low back pain, unspecified (03/03/25) Pain in right foot (03/03/25) History of falling (03/03/25) Physical Therapy Treatment Note PT OP: Lower Back/Lower Extremity Start: 02/24/25 13:01 Freq: Status: Active Protocol: Document 03/03/25 14:38 SP (Rec: 03/03/25 15:47 SP [id number]) Out-Patient Physical Therapy Visit Information Visit Information Visit Type Treatment Note Visit Start Time 14:38 Visit Stop Time 15:23 Visit Number 11 Number of NET FRONT END DEVELOPER Visits 2 Progress Note Due 03/17/25 OP-PT Subjective Patient Comments Patient Comments Pt reports doing better, compliante with HEP, walking more and at times dog sees another animal and tugs her off balance but does fall/self recovers but suprising. She is doing HEP on floor to practice getting on/off floor. Is going OOT 03/18-04/11/25 to see daughter (a PT) in [place] so not sure if have to DC or can make an appt when returns to see how doing and if need to continue. Her trip will be actively moving around so unsure if will get to all HEP but can try. Gym Equipment Therapeutic Ball Core Series Exercise Details LTR, DTC, bridge Body Position hookylying Reps/Duration 10 reps each Comments ROM BLEs over 55cm tball Therapeutic Exercises Supine Exercises Bridging Supine Exercise Name verbal review keep up with for glut strenghtening Reps/Minutes 5 reps, hold 10 sec Comments cued glut activation, not to high to cause WB strain on neck. Standing Exercises Fwd/bwd walking Standing Exercise Mod. to: Resisted Walk Outs for core&hip abd Name strenghtening:fwd/bwd/lateral Resistance Tb #3 in hands front navel vs around trunk Reps/Minutes 3 step out/back (hand written on hooklying core series HO) Comments better band around waist- provided for home/trip use Self-Care/Home Management Treatment Education Patient Education Body Mechanics,Fall Risk,Home Exercise Program,Posture, Safety Other Education Extra time education regarding postural awareness COG over MARYLOU, rhomboid engagement, TA draw in needed, trunk over pelvis over between BLEs for midline stability during resisted stepping for strength balance recovery walking her dog. Physical Therapy Assessment Goals Three Impairment Pt displays bilateral hip weakness, particularly hip flex and ext (3+/5) General Magistrate Goal (LTG) Pt to demonstrate an increase in hip strength to at least 4/5 in all planes in order to help stabilize pelvis during gait to improve functional balance. LTG Duration 02/22/25 Two Impairment Pt exhibits increased falls risk, per Love score (44/56 ) and FGA (19/30) Chcf Goal (LTG) Pt to improve score of the Love Balance Scale by at least 5 points to 49/56 in order to demonstrate decrease in risk of falls. LTG Duration 02/22/25 One Impairment Pt does not have an appropriate home exercise program Short Term Goal (STG Pt to be independent and compliant with an appropriate ) HEP STG Duration 01/22/25 Assessment Summary Assessment Pt improved core engagement this tx with cues during alignment core hooklying series and carryover resisted stepping with resistance at waist vs held front of navel found best and great with little work on balance transitioning between BLEs. Provided HOs and increased resistance band for home to support longer endurance walks over uneven community surfaces and walking her dog. Physical Therapy Plan Frequency and Duration Frequency of 2x/Week Treatment Plan of Care Start 02/15/25 Date Plan of Care End 04/17/25 Date Therapeutic Interventions Therapeutic Balance Training,Gait Training,Home Exercise Program, Interventions Joint Mobilizations,Manual Therapy,Patient/Caregiver Education,Self-Care/Home Management,Soft Tissue Mobilization,Therapeutic Activities,Therapeutic Exercises,Vestibular Rehabilitation Next Visit Focus/Plan Next Note Type Progress Note Next Visit Plan PN Next visit, going OOT 03/18- and wonder if needs to DC or can make 1 more appt when returns see if ready to DC on own or needs more progression support. POC: Review/check in on her HEP, progress balance and add uneven surfaces for return to trail walking. Balance training, functional mobility, strengthening
--- NOTE | 2025-03-10 14:20 | PT.OPDS ---
Current Diagnoses Other chronic pain (03/10/25) Low back pain, unspecified (03/10/25) Pain in right foot (03/10/25) History of falling (03/10/25) Visit Care Team Role Provider Type Julius Sandoval DO Attending Provider Physician Family Provider Primary Care Provider Referring Provider Specialty: Family Practice Address: [address] [place] [address] Email: Visit Number Visit Number 12 Discharge Summary PT OP: Lower Back/Lower Extremity Start: 02/24/25 13:01 Freq: Status: Active Protocol: Document 03/10/25 13:45 DCW (Rec: 03/10/25 14:20 DCW [id number]) Out-Patient Physical Therapy Visit Information Visit Information Visit Type Discharge Summary Visit Start Time 13:45 Visit Stop Time 14:15 Visit Number 12 Number of POLITICAL REPORTER Visits 0 Progress Note Due 03/17/25 Evaluation Information Evaluation Date 12/23/24 OP-PT Subjective Patient Comments Patient Comments I keep tweaking my left knee, the one that was replaced. Not with PT stuff or anything, just life. Love Balance Assessment Evaluation Sitting to Standing Independent w/out Hands Ability Unsupported Stance Safely- 2 minutes Sitting Unsupported, Safely- 2 minutes Feet on Floor Standing to Sitting Safely, Minimal Hand Use Ability Transfer Ability Safely, Minimal Hand Use Unsupported Stance- Safely, 10 seconds Eyes Closed Unsupported Stance- Independent, 1 minute Eyes Open Reaching Forward Confidently, 10 inches Standing Pick- Up Object From Independent/Safe Floor Look Behind Shoulder Shifts Weight Well - Standing Turning 360 Degrees Turns slowly, but safely Unsupported Stance, (I)- 8 Steps in 20 secs Alternating Feet on Stair Unsupported Tandem Achieves Tandem Stance Unilateral Leg Lifts Leg/Holds > 3 secs Stance Total Score Love Total Score ( 52 out of 56 points) Love Impairment 1 to 19% Impaired (Score 45-55) Rating Functional Tests Dynamic Gait Index (DGI) Score 20/24 Neuro Re-Education Treatment Other Activities Testing Details DGI, Love Physical Therapy Assessment Goals Three Impairment Pt displays bilateral hip weakness, particularly hip flex and ext (3+/5) Department Store General Manager Goal (LTG) Pt to demonstrate an increase in hip strength to at least 4/5 in all planes in order to help stabilize pelvis during gait to improve functional balance. LTG Duration 02/22/25 Two Impairment Pt exhibits increased falls risk, per Love score (44/56 ) and FGA () Department Store General Manager Goal (LTG) Pt to improve score of the Love Balance Scale by at least 5 points to 49/56 in order to demonstrate decrease in risk of falls. LTG Duration Met One Impairment Pt does not have an appropriate home exercise program Short Term Goal (STG Pt to be independent and compliant with an appropriate ) HEP STG Duration Met Assessment Summary Assessment Pt has met or nearly met all goals, feeling more confident with her activities and balance. Admits she could be a little better with HEP compliance, but has been working some. [place] be out of the country for the next month. Pt in agreement to discharge from skilled therapy at this time, will return with a new referral if needed in the future. Physical Therapy Plan Frequency and Duration Frequency of 2x/Week Treatment Plan of Care Start 02/15/25 Date Plan of Care End 04/17/25 Date Therapeutic Interventions Therapeutic Balance Training,Gait Training,Home Exercise Program, Interventions Joint Mobilizations,Manual Therapy,Patient/Caregiver Education,Self-Care/Home Management,Soft Tissue Mobilization,Therapeutic Activities,Therapeutic Exercises,Vestibular Rehabilitation Discharge Physical Therapy Discharge Reasons Goals Met Next Visit Focus/Plan Next Note Type Discharge Summary
== END 2025-05-05 09:48 | disposition home or self-care (01) ==
LOC: PHYS 13:45
PROVIDERS: Family Provider Family Medicine; PCP Family Medicine; Referring Provider Family Medicine; Visit Provider Family Medicine
DX: M54.50 Low back pain, unspecified (principal); G89.29 Other chronic pain; M79.671 Pain in right foot; Z91.81 History of falling
CPT/HCPCS: 97110; 97112; 97116; 97140; 97163; 97535

== ENCOUNTER 2025-04-06 15:44 | Emergency (ER) | payer MEDICARE, SELFPAY ==
[2025-04-06 15:50] VITALS: BP 166/73; PULSE 57; RESP 16; TEMP 37.2; O2SAT 97; BMI 22.8
--- NOTE | 2025-04-06 16:08 | DI.US.S_ITS ---
PROCEDURE: US PERIPH VENOUS LOW EXTREM RT INDICATIONS: swelling and red TECHNIQUE: Real-time imaging, as well as color and pulse Doppler interrogation, were performed of the lower extremity deep veins from the inguinal ligament to the popliteal fossa, with documentation of the visualized calf veins. COMPARISON: None. FINDINGS: The common femoral, femoral, popliteal, and the visualized calf veins are normally compressible, and free of intraluminal thrombus. Color and pulse Doppler demonstrate normal phasic intraluminal flow. There is normal augmentation response to distal compression maneuver. IMPRESSION: No findings of lower extremity deep venous thrombosis. Dictated by: Priyank Wade M.D. on 04/06/2025 at 17:11 Approved by: Priyank Wade M.D. on 04/06/2025 at 17:11
--- NOTE | 2025-04-06 16:46 | ED_ITS ---
<Statement entered by Fady Jaimes, - 04/07/25 13:24> Dr. Jaimes: I was immediately available in the department for consultation. I did not actually see the patient. HPI - Extremity Problem General Chief complaint: Extremity Problem,Nontraumatic Stated complaint: rt foot swelling Time Seen by Provider: 04/06/25 16:08 Source: patient Mode of arrival: Family Vehicle History of Present Illness HPI Narrative: Ms. Stratton is a pleasant 84-year-old female with a past medical history of osteoporosis, pacemaker on Xarelto who presents to the emergency department for right foot swelling x1 day. Patient has been recently traveling, prolonged flight and car rides returning here yesterday. Her right foot became noticeably swollen on the plane, painful, with redness on the dorsal aspect. No trauma, fall or tripping. No wounds however she does have a small healing scab in the right great toe. Concern for DVT. Related Data Home Medications ?Medication ?Instructions ?Recorded ?Confirmed metoprolol succinate 25 mg 25 mg PO DAILY 02/08/2409/08 tablet,extended release 24 hr rivaroxaban 20 mg tablet (Xarelto) 20 mg PO DAILY 01/1301/13/25 Previous Rx's ?Medication ?Instructions ?Recorded d-mannose 500 mg capsule 500 mg PO DAILY #90 caps 09/07 trazodone 50 mg tablet 25 mg (1/2 x 50 mg) PO ONCE PM PRN 07/16/24 for insomnia #45 tabs alendronate 70 mg tablet 70 mg PO QWEEK #36 tabs 07/15 11/06 estradiol 0.01% (0.1 mg/gram) 1 g vaginal 3XW #42.5 gr ams 03/02/25 vaginal cream (Estrace) methenamine hippurate 1 gram tablet 1 g PO BID #120 ta bs 03/02/25 nitrofurantoin 100 mg PO BID 7 days #14 cap s 03/02/25 monohydrate/macrocrystals 100 mg capsule (Macrobid) cephalexin 500 mg capsule 500 mg PO QID 7 days #28 cap s 04/06/25 Allergies Allergy/AdvReac Type Severity Reaction Status Date / Time gluten Allergy Unknown Verified 04/06/25 15:51 Review of Systems Review of Systems ROS Unobtainable: All systems reviewed & are unremarkable except as noted in HPI and below Patient History Medical History Ganglion cyst of finger of right hand Short leg syndrome, right, acquired Bilateral bunions Athlete's foot on left Risk for falls Pacemaker Passage of loose stools Osteoporosis Left wrist pain Left hand pain Chronic midline low back pain without sciatica Bradycardia Fatigue Somatic dysfunction of lower extremity Pain, foot, right, chronic Chronic pain in right shoulder Chronic instability of right knee Upper extremity somatic dysfunction Cervical somatic dysfunction Cranial somatic dysfunction Abnormality of breast on screening mammography Wears glasses Osteoarthritis (~2020) Osteopenia Foot fracture, right (~1994) Mumps Measles Chicken pox Anemia (~1966) Ruptured tympanic membrane History of recurrent ear infection Hearing loss Cataracts, bilateral Stress incontinence Frequent UTI (~2012) Gluten enteropathy Skin cancer (~2016) Insomnia Celiac disease (~2008) Surgical History Prolapsed uterus (~2008) History of bladder suspension procedure (~2007) Anesthesia History of left knee replacement (~2014) History of hip replacement (~2012) History of hip replacement (~2010) Family History Father Cancer Mother History of emphysema COPD (chronic obstructive pulmonary disease) Brother History of knee surgery Melanoma Neuropathy of foot Grandmother History of heart disease alcohol intake frequency: 0-2 drinks per day Exam Narrative Exam Narrative: GENERAL: 84 year old patient appears stated age. Well-developed patient, in no acute distress. HEAD: Atraumatic. Normocephalic. EYES: No scleral icterus. No injection or drainage. . CARDIOVASCULAR: Regular rate RESPIRATORY: ?Nonlabored respirations. ?Speaking in clear, full sentences. EXTREMITIES: Erythema, non-pitting edema and increased warmth of the dorsal right midfoot. Healing scab on the right great toe with no surrounding erythema. No induration or fluctuance. No streaking up the leg. No medial or lateral malleolus tenderness. NEURO: AOx3. ?Clear speech. ?Moves all 4 extremities appropriately. SKIN: Erythema, edema, increased warmth of right dorsal midfoot described above. Initial Vital Signs Initial Vital Signs: Vital Signs Temperature 99.0 F 04/06/25 15:50 Pulse Rate 57 L 04/06/25 15:50 Respiratory Rate 16 04/06/25 15:50 Blood Pressure 166/73 H 04/06/25 15:50 Pulse Oximetry 97 04/06/25 15:50 Oxygen Delivery Method Room Air 04/06/25 15:50 Course Orders Ordered: ED Orders 04/06/25 16:08 US periph venous low extrem rt Stat Vital Signs Vital signs: Vital Signs - 8 hr 04/06/25 15:50 04/06/25 17:23 Temperature 99.0 F Pulse Rate 57 L 60 Respiratory Rate 16 Blood Pressure 166/73 H 151/69 H Pulse Oximetry 97 98 Oxygen Delivery Method Room Air Room Air MDM - Extremity (Nontraumatic) Imaging Data RLE Venous US: Radiologist's Impression: PROCEDURE: US PERIPH VENOUS LOW EXTREM RT INDICATIONS: swelling and red TECHNIQUE: Real-time imaging, as well as color and pulse Doppler interrogation, were performed of the lower extremity deep veins from the inguinal ligament to the popliteal fossa, with documentation of the visualized calf veins. COMPARISON: None. FINDINGS: The common femoral, femoral, popliteal, and the visualized calf veins are normally compressible, and free of intraluminal thrombus. Color and pulse Doppler demonstrate normal phasic intraluminal flow. There is normal augmentation response to distal compression maneuver. IMPRESSION: No findings of lower extremity deep venous thrombosis. Dictated by: Priyank Wade M.D. on 04/06/2025 at 17:11 Approved by: Priyank Wade M.D. on 04/06/2025 at 17:11 [facility] Narrative Medical decision making narrative: 84-year-old female with a past medical history of osteoporosis, pacemaker on Xarelto who presents to the emergency department for right foot swelling x1 day. Differential diagnosis includes but is not limited to right foot SVT, DVT, cellulitis, gout, arthritis, etc. On exam the patient is in no acute distress, nontoxic-appearing, all vital signs appropriate. She is afebrile non tachycardic. Bilateral feet are neurovascularly intact with great pulses, sensation intact to light touch. Right lower extremity venous ultrasound ordered in triage reveals no findings of lower extremity deep venous thrombosis. At this time I am concerned for possible cellulitis, we will treat with cephalexin q.i.d. x7 days. Discussed ER return precautions, PCP follow up, rice therapy and Tylenol for pain. Patient verbalized understanding of all information agreeable with the plan, ambulatory, stable for discharge home, antibiotics sent to pharmacy of choice. Discharge Plan Departure Patient Disposition: Home Clinical Impression: Edema of right foot, Cellulitis of foot, right Instructions: DI for Cellulitis -- Adult Activity Restrictions/Additional Instructions: Dear Ms. Stratton, Thank you for coming to the emergency department. Today you were evaluated for redness and swelling of the right foot after recent travel. Your ultrasound revealed no blood clot. Due to the redness and increased warmth of your foot, I am concerned for skin infection and have started you on an oral antibiotic. Please complete the full 7 days. Your foot can also be inflamed from the excess walking so it is important to rest, elevate the foot, apply ice and follow up with your primary care doctor. Please use Tylenol for pain. Please use RICE therapy for your pain in addition to acetaminophen. Rest the painful area. Ice the area of pain/swelling for at least 15 minutes, 4x a day. Compress the area of swelling using compression socks. Elevate the painful or swollen extremity by supporting it above the level of the heart with pillows when sitting or laying. Return to the emergency department if you develop increased redness, swelling up the leg, fevers or any other concerns. Please follow up with your primary care doctor within the next 2-3 days for ER follow-up. (If you do not have a PCP you can call [phone]. ?to schedule an appointment with an [facility] Primary Care Provider) IF YOU DEVELOP ANY NEW OR WORSENING SYMPTOMS, RETURN TO THE ER! Please read the attached instructions, they highlight more specific treatments and interventions for you at home. Thank you for letting me participate in your care, Virginia Chavez PA-C Prescriptions: New cephalexin 500 mg capsule 500 mg PO QID 7 Days Qty: 28 0RF No Action Xarelto 20 mg tablet 20 mg PO DAILY metoprolol succinate 25 mg tablet extended release 24 hr 25 mg PO DAILY d-mannose 500 mg capsule 500 mg PO DAILY Qty: 90 3RF trazodone 50 mg tablet 25 mg PO ONCE PM PRN (Reason: for insomnia) Qty: 45 0RF alendronate 70 mg tablet 70 mg PO QWEEK Qty: 36 3RF methenamine hippurate 1 gram tablet 1 g PO BID Qty: 120 5RF Rx Instructions: for UTI prevention estradiol [Estrace] 0.01 % (0.1 mg/gram) cream 1 g vaginal 3XW Qty: 42.5 6RF Rx Instructions: apply 1 gm to vagina 3 nights a week. OK to use indefinitely. nitrofurantoin monohyd/m-cryst [Macrobid] 100 mg capsule 100 mg PO BID 7 Days Qty: 14 3RF Rx Instructions: must administer with a meal/food Referrals: Julius Sandoval DO [Primary Care Provider, Family Practice] Stand Alone Forms: Patient Portal/API
[2025-04-06 17:23] VITALS: BP 151/69; PULSE 60; O2SAT 98
== END 2025-04-06 17:57 | disposition home or self-care (01) ==
PROVIDERS: Emergency Provider Physician Assistant; PCP Family Medicine
DX: L03.115 Cellulitis of right lower limb (principal); R60.9 Edema, unspecified; Z79.01 Long term (current) use of anticoagulants
CPT/HCPCS: 93971; 99281; 99283